=== PATIENT | female | born 1940 | race Caucasian/White ===

== ENCOUNTER 2021-05-06 06:34 | Day surgery (SDC) | payer MEDICARE, OTHER ==
[2021-05-04 15:54] VITALS: BMI 24.2
[~2021-05-06 06:34] MED LIST: LACTATED RINGERS 1,000 ML IV SCH
[2021-05-06] MEDS ORDERED: LIDOCAINE 1% (10MG/ML) FOR IV START INTRADERMA ONE (07:25)
[2021-05-06 07:32] VITALS: RESP 16; TEMP 97.3
[2021-05-06 07:33] LABS: Glucose,Whole Blood 125 mg/dL (75-99)
[2021-05-06] MEDS ORDERED: LIDOCAINE 1% INJ 10MG/ML (20 ML MDV) ONE (07:34)
[2021-05-06] MEDS ORDERED: PROPOFOL 10 MG/ML 20 ML VIAL IV ONE (07:34)
[2021-05-06 07:49] VITALS: BP 107/60; PULSE 71
--- NOTE | 2021-05-06 07:56 | P.PCN ---
Date of Procedure: 05/06/21 Procedure(s) Performed: BRIEF HISTORY: Patient is a 81-year-old, pleasant, white female scheduled for an upper endoscopy as a part of evaluation of iron deficiency anemia. 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 PROCEDURE PERFORMED: Esophagogastroduodenoscopywith biopsy PREOPERATIVE DIAGNOSIS: Iron deficiency anemia and positice anri intrinsic cell ab IV sedation per anesthesia. PROCEDURE: After informed consent was obtained, the patient was brought into the endoscopy unit. IV sedation was administered by Anesthesia under continuous monitoring. Initially the Olympus GIF-140 video endoscope was inserted into the mouth. Esophagus intubated without any difficulty. It was gradually advanced into the stomach and duodenum and carefully examined. The bulb and the second part of the duodenum appeared normal.biopsies were done from the duodenum to rule out celiac disease. The scope at this time was withdrawn to the stomach, adequately insufflated with air, and upon careful examination, mucosa of the antrum,had mild gastritis and biopsies were done from this area. The body, cardia and the fundus appeared normal. The scope was then withdrawn into the esophagus. The GE junction was located at 39 cm from the incisors.small hiatal hernia noted. The esophagus appeared normal. There were 2 superficial erosions consistent with LA grade a reflux esophagitis. Rest of esophagus appeared normal and the patient tolerated the procedure well. IMPRESSION: 1.mild antral gastritis. 2.small hiatal hernia. 3. LA grade B reflux esophagitis RECOMMENDATIONS: The findings of this examination were discussed with the jorge luis fish as well as her family. She was advised to follow with the biopsy results. She will continue with iron supplements.. Follow with Dr. Templeton scheduled
== END 2021-05-06 08:39 | disposition home or self-care (01) ==
LOC: ORWHC2ENDO 06:34
PROVIDERS: ATTEND Internal Medicine Gastroenterology
DX: D50.9 Iron deficiency anemia, unspecified (principal)
CPT/HCPCS: 43239; J2001; J2704; 88305; 88313; 88342

== ENCOUNTER 2023-03-10 12:11 | Inpatient (IN) | payer MEDICARE, OTHER ==
[2023-03-10] MEDS ORDERED: SODIUM CHLORIDE 0.9% 1,000 ML IV STA (12:59)
--- NOTE | 2023-03-10 13:11 | ED ---
General Adult HPI - General Chief complaint: Syncope Stated complaint: LOWER INJURY Time Seen by Provider: 03/10/23 12:11 Source: patient, family, EMS, RN notes reviewed Mode of arrival: EMS Limitations: no limitations - History of Present Illness Initial comments: 83-year-old female with a recently diagnosed atrial fibrillation who currently is on Xarelto and has been also having rectal bleeding she states who was shopping in a local grocery store when she started feeling lightheaded and needed to sit down she's had a small stool index evening she knew she was on the ground apparently help by bystanders. She denies any trauma she states she felt some chest heaviness before this occurred no palpitations no overt shortness of breath no cough no focal weakness. She states she has similar episode about 3 years ago a similar setting. She does state also she was seen at [facility] approximately 3 weeks ago when she was diagnosed with A. fib. She is on metoprolol.. Per family member she does look pale with better than she did a t the store she apparently looked blue in color per family. She does have a chronic history of anemia. Currently no shortness breath no chest pain no palpitations - Related Data Home Medications Medication Instructions Recorded Confirmed Cyanocobalamin (Vitamin B-12) 5,000 mcg PO DAILY 05/04/21 03/10/23 [Vitamin B12] Losartan [Cozaar] 50 mg PO DAILY 05/04/21 03/10/23 Lutein 20 mg PO DAILY 05/04/21 03/10/23 Spironolactone [Aldactone] 25 mg PO HS 05/04/21 03/10/23 metFORMIN HCL [Glucophage] 1,000 mg PO BID 05/04/21 03/10/23 Calcium Carb/Mag Ox/Zinc Sulf 1 tab PO DAILY 03/10/23 03/10/23 [Flz-Icc-Xxid 334-134-5 mg Tab] Metoprolol Succinate (ER) [Toprol 25 mg PO HS 03/10/23 03/10/23 Xl] Rivaroxaban [Xarelto] 20 mg PO DIRECTED 03/10/23 03/10/23 Vitamin B Complex 1 cap PO DAILY 03/10/23 03/10/23 Allergies Allergy/AdvReac Type Severity Reaction Status Date / Time LAYO Inhibitors Allergy Cough, Verified 03/10/23 16:21 THROAT IRRITATION aspirin Allergy Swelling Verified 03/10/23 16:21 OF EYES AND ITCHING ciprofloxacin [From Cipro] Allergy Nausea & Verified 03/10/23 16:21 Vomiting doxycycline Allergy Swelling Verified 03/10/23 16:21 AND RASH ALL OVER egg Allergy Diarrhea/ABDOMINAL Verified 03/10/23 16:21 PAIN nickel Allergy Swelling Verified 03/10/23 16:21 AT SITE OF JEWELRY Penicillins Allergy Rash/Hives Verified 03/10/23 16:21 Sulfa (Sulfonamide Allergy Rash/Hives Verified 03/10/23 16:21 Antibiotics) vitamin E (d-alpha Allergy BREAST PAIN Verified 03/10/23 16:21 tocopherol) GOLD Allergy Swelling Uncoded 03/10/23 16:21 AT SITE OF JEWELRY Review of Systems ROS Statement: Those systems with pertinent positive or pertinent negative responses have been documented in the HPI. ROS Other: All systems not noted in ROS Statement are negative. Past Medical History Past Medical History: Diabetes Mellitus, Hypertension, Osteoarthritis (OA), Thyroid Disorder Additional Past Medical History / Comment(s): ANEMIA, MIGRAINE HEADACHES , CHRONIC UTI , LACTOSE INTOLERANT, History of Any Multi-Drug Resistant Organisms: None Reported Past Surgical History: Appendectomy, Hysterectomy Additional Past Surgical History / Comment(s): RETINA SURGERY , TJ CATARACT EYE SURGERY, Past Anesthesia/Blood Transfusion Reactions: No Reported Reaction Past Psychological History: Anxiety Smoking Status: Never smoker - Past Family History Mother Family Medical History: Cancer Daughter(s) Family Medical History: Cancer Additional Family Medical History / Comment(s): BREAST CANCER General Exam - General Exam Comments Initial Comments: This a well up well-nourished awake alert oriented 6 female Limitations: no limitations General appearance: alert, in no apparent distress Head exam: Present: atraumatic, normocephalic, normal inspection Eye exam: Present: PERRL, EOMI, other (Pale conjunctiva) ENT exam: Present: normal exam, mucous membranes moist Neck exam: Present: normal inspection, full ROM, other (No stridor JVD or bruits). Absent: tenderness, meningismus, lymphadenopathy Respiratory exam: Present: normal lung sounds bilaterally. Absent: respiratory distress, wheezes, rales, rhonchi, stridor Cardiovascular Exam: Present: regular rate, normal rhythm, normal heart sounds. Absent: systolic murmur, diastolic murmur, rubs, gallop, clicks GI/Abdominal exam: Present: soft, normal bowel sounds. Absent: distended, tenderness, guarding, rebound, rigid, bruit, pulsatile mass Rectal exam: Present: normal inspection (Stool is brown with evidence of some tinge of blood my fingertip no masses no tenderness no evidence of external hemorrhoids no tenderness to the rectal canal on examination.) Extremities exam: Present: normal inspection, full ROM, normal capillary refill. Absent: tenderness, pedal edema, joint swelling, calf tenderness Back exam: Present: normal inspection Neurological exam: Present: alert, oriented X3, CN II-XII intact Psychiatric exam: Present: normal affect, normal mood Skin exam: Present: warm, dry, intact, normal color. Absent: rash Course Vital Signs 03/10/23 12:16 Temperature 97.8 F Pulse Rate 65 Respiratory 18 Rate Blood Pressure 151/70 O2 Sat by Pulse 98 Oximetry - Reevaluation(s) Reevaluation #1: 03/10/23 13:35 Additional history the patient does have a history of prolapse of the bladder and does use a pessary at times. Additionally she did show any photos of the blood in the toilet although she experiences she states daily some enterostomal nurse red blood and clots noted in the photos EKG Findings - EKG Results: EKG: sinus rhythm (EKG interpreted by me sinus rhythm with occasional supraventricular premature complexes rate 71 appear interval 172 QRS duration 13 QT since QTC 382/414 left exodeviation low-voltage minimal ST configuration change is consistent with a rhythm strip sent from [facility]) Medical Decision Making - Medical Decision Making I did discuss findings with the patient and her daughter as well as with Nick hayes for Dr. browne around him. Patient be admitted. I also did discuss case Dr. Oliva who is agreed to be consulted because of the GI bleeding.Was pt. sent in by a medical professional or institution (, PA, SKIN INSTALLER, urgent care, hospital, or custodial...) When possible be specific @ -No Did you speak to anyone other than the patient for history (EMS, parent, family, police, friend...)? What history was obtained from this source @ -Patient's daughter Did you review nursing and triage notes (agree or disagree)? Why? @ -I reviewed and agree with nursing and triage notes Were old charts reviewed (outside hosp., previous admission, EMS record, old EKG, old radiological studies, urgent care reports/EKG's, custodial records)? Report findings @ -[facility] records from 02/05/23 old charts were reviewed Differential Diagnosis (chest pain, altered mental status, abdominal pain women, abdominal pain men, vaginal bleeding, weakness, fever, dyspnea, syncope, headache, dizziness, GI bleed, back pain, seizure, CVA, palpatations, mental health, musculoskeletal)? @ -Sincope, chest pain, GI bleeding EKG interpreted by me (3pts min.). @ -As above EKG interpreted by me sinus rhythm with occasional supraventricular premature complexes ventricular rate 71 appear interval was 72 QRS duration 103 daily since QTC 392/[address] change consistent with that at the other hospital. X-rays interpreted by me (1pt min.). @ -Chest x-ray. My me no acute processes seen at this time CT interpreted by me (1pt min.). @ -None done U/S interpreted by me (1pt. min.). @ -None done What testing was considered but not performed or refused? (CT, X-rays, U/S, labs)? Why? @ -None What meds were considered but not given or refused? Why? @ -None Did you discuss the management of the patient with other professionals (professionals i.e. , PA, SKIN INSTALLER, lab, RT, psych nurse, criminal justice social worker, title i teacher, teacher, hydrographical technical officer, telephonic case manager)? Give summary @ -Nick covering for Dr. Rivero as well as Dr. Oliva Was smoking cessation discussed for >3mins.? @ -No Was critical care preformed (if so, how long)? @ -31 minutes Were there social determinants of health that impacted care today? How? (Homelessness, low income, unemployed, alcoholism, drug addiction, transportation, low edu. Level, literacy, decrease access to med. care, usp, rehab)? @ -No Was there de-escalation of care discussed even if they declined (Discuss DNR or withdrawal of care, Hospice)? DNR status @ -No What co-morbidities impacted this encounter? (DM, HTN, Smoking, COPD, CAD, Cancer, CVA, ARF, Chemo, Hep., AIDS, mental health diagnosis, sleep apnea, morbid obesity)? @ -History of A. fib, blood thinners, prior history of syncope Was patient admitted / discharged? Hospital course, mention meds given and route, prescriptions, significant lab abnormalities, going to OR and other pertinent info. @ -hospital course was admitted to the hospital for further evaluation and treatment Undiagnosed new problem with uncertain prognosis? @ -Syncope Drug Therapy requiring intensive monitoring for toxicity (Heparin, Nitro, Insulin, Cardizem)? @ -No Were any procedures done? @ -No Diagnosis/symptom? @ -Syncope, chest pain, GI bleeding, history of A. fib Acute, or Chronic, or Acute on Chronic? @ -Acute Uncomplicated (without systemic symptoms) or Complicated (systemic symptoms)? @ -Op located Side effects of treatment? @ -No Exacerbation, Progression, or Severe Exacerbation? @ -No Poses a threat to life or bodily function? How? (Chest pain, USA, IA, pneumonia, PE, COPD, DKA, ARF, appy, cholecystitis, CVA, Diverticulitis, Homicidal, Suicidal, threat to staff... and all critical care pts) @ -Syncope, GI bleeding - Lab Data Result diagrams: 03/10/23 13:47 03/10/23 13:47 Lab Results 03/10/23 03/10/23 03/10/23 Range/Units 13:47 13:47 13:47 WBC 9.8 (3.8-10.6) k/uL RBC 3.56 L (3.80-5.40) m/uL Hgb 9.5 L (11.4-16.0) gm/dL Hct 29.3 L (34.0-46.0) % MCV 82.4 (80.0-100.0) fL MCH 26.6 (25.0-35.0) pg MCHC 32.3 (31.0-37.0) g/dL RDW 14.3 (11.5-15.5) % Plt Count 115 L (150-450) k/uL MPV 11.5 Neutrophils % 85 % Lymphocytes % 10 % Monocytes % 4 % Eosinophils % 0 % Basophils % 0 % Neutrophils # 8.4 H (1.3-7.7) k/uL Lymphocytes # 1.0 (1.0-4.8) k/uL Monocytes # 0.4 (0-1.0) k/uL Eosinophils # 0.0 (0-0.7) k/uL Basophils # 0.0 (0-0.2) k/uL Manual Slide Review Performed Large Platelets Present Hypochromasia Slight PT 10.8 (10.0-12.5) sec INR 1.0 (<1.2) APTT 21.8 L (22.0-30.0) sec Sodium 137 (137-145) mmol/L Potassium 4.8 (3.5-5.1) mmol/L Chloride 107 (98-107) mmol/L Carbon Dioxide 19 L (22-30) mmol/L Anion Gap 11 mmol/L BUN 23 H (7-17) mg/dL Creatinine 0.81 (0.52-1.04) mg/dL Est GFR (CKD-EPI)AfAm 79 (>60 ml/min/1.73 sqM) Est GFR (CKD-EPI)NonAf 69 (>60 ml/min/1.73 sqM) Glucose 135 H (74-99) mg/dL Calcium 8.7 (8.4-10.2) mg/dL Magnesium 1.6 (1.6-2.3) mg/dL Total Bilirubin 0.4 (0.2-1.3) mg/dL AST 19 (14-36) U/L ALT 12 (4-34) U/L Alkaline Phosphatase 55 (38-126) U/L Troponin I (0.000-0.034) ng/mL Total Protein 5.9 L (6.3-8.2) g/dL Albumin 3.7 (3.5-5.0) g/dL TSH <0.015 L (0.465-4.680) mIU/L Urine Color Urine Appearance (Clear) Urine pH (5.0-8.0) Ur Specific [place] (1.001-1.035) Urine Protein (Negative) Urine Glucose (UA) (Negative) Urine Ketones (Negative) Urine Blood (Negative) Urine Nitrite (Negative) Urine Bilirubin (Negative) Urine Urobilinogen (<2.0) mg/dL Ur Leukocyte Esterase (Negative) Urine RBC (0-5) /hpf Urine WBC (0-5) /hpf Urine WBC Clumps (None) /hpf Ur Squamous Epith Cells (0-4) /hpf Urine Bacteria (None) /hpf Stool Occult Blood (Negative) Blood Type Blood Type Confirm Blood Type Recheck Bld Type Recheck Status Antibody Screen Spec Expiration Date 03/10/23 03/10/23 03/10/23 Range/Units 13:47 13:47 13:47 WBC (3.8-10.6) k/uL RBC (3.80-5.40) m/uL Hgb (11.4-16.0) gm/dL Hct (34.0-46.0) % MCV (80.0-100.0) fL MCH (25.0-35.0) pg MCHC (31.0-37.0) g/dL RDW (11.5-15.5) % Plt Count (150-450) k/uL MPV Neutrophils % % Lymphocytes % % Monocytes % % Eosinophils % % Basophils % % Neutrophils # (1.3-7.7) k/uL Lymphocytes # (1.0-4.8) k/uL Monocytes # (0-1.0) k/uL Eosinophils # (0-0.7) k/uL Basophils # (0-0.2) k/uL Manual Slide Review Large Platelets Hypochromasia PT (10.0-12.5) sec INR (<1.2) APTT (22.0-30.0) sec Sodium (137-145) mmol/L Potassium (3.5-5.1) mmol/L Chloride (98-107) mmol/L Carbon Dioxide (22-30) mmol/L Anion Gap mmol/L BUN (7-17) mg/dL Creatinine (0.52-1.04) mg/dL Est GFR (CKD-EPI)AfAm (>60 ml/min/1.73 sqM) Est GFR (CKD-EPI)NonAf (>60 ml/min/1.73 sqM) Glucose (74-99) mg/dL Calcium (8.4-10.2) mg/dL Magnesium (1.6-2.3) mg/dL Total Bilirubin (0.2-1.3) mg/dL AST (14-36) U/L ALT (4-34) U/L Alkaline Phosphatase (38-126) U/L Troponin I <0.012 (0.000-0.034) ng/mL Total Protein (6.3-8.2) g/dL Albumin (3.5-5.0) g/dL TSH (0.465-4.680) mIU/L Urine Color Urine Appearance (Clear) Urine pH (5.0-8.0) Ur Specific [place] (1.001-1.035) Urine Protein (Negative) Urine Glucose (UA) (Negative) Urine Ketones (Negative) Urine Blood (Negative) Urine Nitrite (Negative) Urine Bilirubin (Negative) Urine Urobilinogen (<2.0) mg/dL Ur Leukocyte Esterase (Negative) Urine RBC (0-5) /hpf Urine WBC (0-5) /hpf Urine WBC Clumps (None) /hpf Ur Squamous Epith Cells (0-4) /hpf Urine Bacteria (None) /hpf Stool Occult Blood Positive H (Negative) Blood Type A Positive Blood Type Confirm Blood Type Recheck No Previous Record Bld Type Recheck Status CABO Indicated Antibody Screen NEGATIVE Spec Expiration Date 03/13/2023 - 234603/10/23 03/10/23 Range/Units 13:47 14:15 WBC (3.8-10.6) k/uL RBC (3.80-5.40) m/uL Hgb (11.4-16.0) gm/dL Hct (34.0-46.0) % MCV (80.0-100.0) fL MCH (25.0-35.0) pg MCHC (31.0-37.0) g/dL RDW (11.5-15.5) % Plt Count (150-450) k/uL MPV Neutrophils % % Lymphocytes % % Monocytes % % Eosinophils % % Basophils % % Neutrophils # (1.3-7.7) k/uL Lymphocytes # (1.0-4.8) k/uL Monocytes # (0-1.0) k/uL Eosinophils # (0-0.7) k/uL Basophils # (0-0.2) k/uL Manual Slide Review Large Platelets Hypochromasia PT (10.0-12.5) sec INR (<1.2) APTT (22.0-30.0) sec Sodium (137-145) mmol/L Potassium (3.5-5.1) mmol/L Chloride (98-107) mmol/L Carbon Dioxide (22-30) mmol/L Anion Gap mmol/L BUN (7-17) mg/dL Creatinine (0.52-1.04) mg/dL Est GFR (CKD-EPI)AfAm (>60 ml/min/1.73 sqM) Est GFR (CKD-EPI)NonAf (>60 ml/min/1.73 sqM) Glucose (74-99) mg/dL Calcium (8.4-10.2) mg/dL Magnesium (1.6-2.3) mg/dL Total Bilirubin (0.2-1.3) mg/dL AST (14-36) U/L ALT (4-34) U/L Alkaline Phosphatase (38-126) U/L Troponin I (0.000-0.034) ng/mL Total Protein (6.3-8.2) g/dL Albumin (3.5-5.0) g/dL TSH (0.465-4.680) mIU/L Urine Color Light Yellow Urine Appearance Cloudy H (Clear) Urine pH 6.5 (5.0-8.0) Ur Specific [place] 1.015 (1.001-1.035) Urine Protein Trace H (Negative) Urine Glucose (UA) Negative (Negative) Urine Ketones Negative (Negative) Urine Blood Trace H (Negative) Urine Nitrite Negative (Negative) Urine Bilirubin Negative (Negative) Urine Urobilinogen <2.0 (<2.0) mg/dL Ur Leukocyte Esterase Large H (Negative) Urine RBC 4 (0-5) /hpf Urine WBC >182 H (0-5) /hpf Urine WBC Clumps Many H (None) /hpf Ur Squamous Epith Cells 18 H (0-4) /hpf Urine Bacteria Moderate H (None) /hpf Stool Occult Blood (Negative) Blood Type Blood Type Confirm A Positive Blood Type Recheck Bld Type Recheck Status Antibody Screen Spec Expiration Date - Radiology Data Interpreted by me: Imaging interpreted by me note definitive evidence of acute processes Critical Care Time Critical Care Time: Yes Total Critical Care Time: 31 Disposition Clinical Impression: Syncope and collapse, GI bleed, History of atrial fibrillation Disposition: ADMITTED IP TO THIS [facility] Condition: Stable Referrals: Tulio Palumbo MD [Primary Care Provider] - 1-2 days Decision Date: 03/10/23 Decision Time: 16:49
[2023-03-10 14:43] LABS: Appearance,Urine Cloudy (Clear); Bacteria,Urine Moderate /hpf; Bilirubin,Urine Negative (Negative); Blood,Urine Trace (Negative); Color,Urine Light Yellow; Glucose,Urine (UA) Negative (Negative); Ketones,Urine Negative (Negative); Leukocyte Esterase,Urine Large (Negative); Nitrite,Urine Negative (Negative); PH, Urine 6.5 (5.0-8.0); Protein,Urine Trace (Negative); RBC,Urine 4 /hpf (0-5); Specific Gravity,Urine 1.015 (1.001-1.035); Squamous Epithelial Cell,Urine 18 /hpf (0-4); Urobilinogen,Urine <2.0 mg/dL (<2.0); WBC,Urine >182 /hpf (0-5)
[2023-03-10 14:46] LABS: Basophils % (A) 0 %; Eosinophils % (A) 0 %; HCT 29.3 % (34.0-46.0); HGB 9.5 gm/dL (11.4-16.0); Hypochromasia Slight; Lymphocytes % (A) 10 %; MCH 26.6 pg (25.0-35.0); MCHC 32.3 g/dL (31.0-37.0); MCV 82.4 fL (80.0-100.0); Mean Platelet Volume 11.5; Monocytes # (A) 0.4 k/uL (0-1.0); Monocytes % (A) 4 %; Neutrophils # (A) 8.4 k/uL (1.3-7.7); Neutrophils % (A) 85 %; Platelet Count 115 k/uL (150-450); RBC 3.56 m/uL (3.80-5.40); RDW 14.3 % (11.5-15.5); WBC 9.8 k/uL (3.8-10.6)
[2023-03-10 14:56] LABS: Prothrombin Time 10.8 sec (10.0-12.5)
[2023-03-10 15:12] LABS: Partial Thromboplastin Time 21.8 sec (22.0-30.0)
[2023-03-10 15:17] LABS: ALT 12 U/L (4-34); AST 19 U/L (14-36); African American GFR (CKD) 79 (>60 ml/min/1.73 sqM); Albumin 3.7 g/dL (3.5-5.0); Alkaline Phosphatase 55 U/L (38-126); Anion Gap 11 mmol/L; Blood Urea Nitrogen 23 mg/dL (7-17); Calcium 8.7 mg/dL (8.4-10.2); Carbon Dioxide 19 mmol/L (22-30); Chloride 107 mmol/L (98-107); Glucose 135 mg/dL (74-99); Magnesium 1.6 mg/dL (1.6-2.3); Non-African American GFR(CKD) 69 (>60 ml/min/1.73 sqM); Potassium 4.8 mmol/L (3.5-5.1); Sodium 137 mmol/L (137-145); Total Bilirubin 0.4 mg/dL (0.2-1.3); Total Protein 5.9 g/dL (6.3-8.2)
--- NOTE | 2023-03-10 15:37 | XR ---
EXAMINATION TYPE: XR chest 2V DATE OF EXAM: 03/10/2023 3:32 PM CLINICAL INDICATION:Female, 83 years old with history of syncope. COMPARISON: None. TECHNIQUE: XR chest 2V Frontal and lateral views of the chest. FINDINGS: Lungs/Pleura: Chronic likely emphysematous changes are noted of the lungs. Hazy airspace opacity with in the medial right lung as well as associated scarring is identified. No evidence of pleural effusio n or pneumothorax. Pulmonary vascularity: Unremarkable. Heart/mediastinum: Cardiomediastinal silhouette is unremarkable. Musculoskeletal: No acute osseous pathology. IMPRESSION: Chronic emphysematous changes with likely developing right mid/lower lung airspace disease.
--- NOTE | 2023-03-10 15:38 | XR ---
EXAMINATION TYPE: XR KUB DATE OF EXAM: 03/10/2023 3:32 PM CLINICAL INDICATION:Female, 83 years old with history of GI bleeding. COMPARISON: None. TECHNIQUE: One radiographic view of the abdomen was obtained. FINDINGS: The bowel gas pattern is nonspecific without dilated loops of small or large bowel. There i s no evidence for organomegaly or pneumoperitoneum. The osseous structures are intact. Fecal materi al and gas are demonstrated throughout the colon and rectum. IMPRESSION: Nonspecific bowel gas pattern without radiographic evidence for acute process.
[2023-03-10 16:20] LABS: Large Platelets Present
[2023-03-10] MEDS ORDERED: ONDANSETRON 4 MG/2 ML VIAL IVP PRN (16:49)
[2023-03-10] MEDS ORDERED: NALOXONE 0.4 MG/ML 1 ML VIAL IV PRN (16:49)
--- NOTE | 2023-03-10 17:08 | P.HPIM ---
History of Present Illness H&P Date: 03/10/23 History of Presenting Illness: Patient is a very pleasant 83-year-old female with a past medical history of paroxysmal atrial fibrillation, hypertension, hyperlipidemia, hypothyroidism, type II blu-[id number]-rkpamicbu diabetes mellitus, and chronic iron deficiency anemia. Patient reports she was recently diagnosed with atrial fibrillation after presenting to [facility] on 02/28/23 with palpitations and found to be in atrial fibrillation with RVR. Patient states at that time she was discharged home on Xarelto and shortly after began noticing bright red blood per her rectum. 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 Patient reports she continued to have daily episodes of bright red blood per rectum. She denies having any chest pain, shortness of breath, abdominal pain or discomfort, changes in or difficulties with her urination, hematuria, nausea, vomiting, hematemesis, melena, or experiencing any numbness/tingling/weakness/swelling in her extremities. Patient reports today while shopping at [employer] and going to roll picker some prescriptions she suddenly began to feel extremely anxious with a heaviness across her chest followed by lightheadedness and the need to sit down as she felt she was going to pass out. Patient reports she sat down on a stool next to the isle and two women came right over to help her. Patient reports the next thing she knew she was lying on the floor with her head on a dog bed. Family member at bedside states that bystanders were cardiac care nurses and that the patient did not fall or hit her head but was gently lowered to the grou nd for her own safety after she lost consciousness. Pt currently denies having any complaints other than feeling a little tired, anxious and wore out. Pt states long hx of anemia but does not know baseline Hgb level. Patient underwent full evaluation in the emergency department. Labs completed and reviewed. CBC showing normocytic anemia with hemoglobin of 9.5 and thrombocytopenia with platelet count of 115. Coagulation profile showing low PTT at 21.8 otherwise normal findings. BMP showing prerenal azotemia with BUN of 23. Liver profile unremarkable. Troponin negative at less than 0.012. TSH less than 0.015 with free T4 pending. Urinalysis was contaminated and patient denies having urinary complaints at this time. Occult stool positive for blood. EKG was completed showing normal sinus rhythm with frequent PACs at 71 bpm with T-wave inversion in inferior leads 2, 3, and aVF no ST abnormalities showing no signs of acute ischemia. Chest x-ray revealing chronic emphysematous changes with hazy airspace opacity within the right medial lung. KUB showing nonspecific bowel gas pattern negative for acute process. Discussed patient's history, chief complaint, clinical findings, laboratory analysis, and imaging results in detail with the ED physician. ED physician reports that general surgeon, Dr. العلي accepted consult for evaluation and management of patient's GI bleed as cork wirer is not available at this time. Patient to be admitted to stepdown unit with telemetry under our services. Gen. surgery and cardiology were consulted. Review of systems: Pertinent positives and negatives as discussed in HPI, a complete review of systems was performed and all other systems are negative. Physical exam: Vital signs reviewed and stable. General: Nontoxic, no distress and appears stated age. Derm: Skin warm and dry, normal coloration for ethnicity. Head: Atraumatic, normocephalic and symmetric. Eyes: EOMs intact, no lid lag, and anicteric sclera Mouth: no lip lesions, mucus membranes moist Cardiovascular: regular rate and rhythm with normal S1S2, systolic murmur, positive posterior tibial pulses bilaterally, and cap refill < 2 seconds. Lungs: Respirations even, regular, and unlabored on room air. Lungs CTA bilaterally, no rhonchi, no rales, no wheezing, and no accessory muscle usage. Abdominal: soft, nontender to palpation, no guarding, no appreciable or ganomegaly Ext: ROM intact. No gross muscle atrophy, no edema, no contractures Neuro: Speech clear, face symmetrical and CN II-XII grossly intact with no noted focal neuro deficits Psych: Alert and oriented to person, place, time, and situation. Appropriate and pleasant affect. Assessment and Plan of Care: Syncopal episode, Possibly secondary to symptomatic anemia vs arrhythmia as patient reported feeling very anxious with a heaviness across her chest just prior to event Lower GI bleed with reports of bright red blood per rectum Acute blood loss anemia on anemia of chronic disease Paroxysmal atrial fibrillation Hypertension Hyperlipidemia Hypothyroidism Owf-[id number] diabetes mellitus -Order placed for d-dimer to rule out PE -Echocardiogram to be completed -Gen. surgeon consulted for management of GI bleed -Cardiology consulted secondary to syncopal episode with recently diagnosed A. fib RVR and patient reporting just prior to syncopal event feeling very anxious with a heaviness across her chest -Monitor H&H every 6 hours x 4 and transfuse as needed for hemoglobin less than 7. -Protonix 40 mg IVP twice daily. -Clear liquid diet until cleared by Gen Sx to advance diet. -Continued gentle hydration with 0.9% normal saline at 75 mL's per hour. -Hold anticoagulation with Xarelto and order placed for MARILOU hose and SCDs for DVT prophylaxis. -Vital signs to be monitored every 4 hours and as needed. Patient to continue with daily home medication regimen with losartan 50 mg daily and metoprolol 25 mg nightly. -Hold metformin and placed patient on glycemic protocol with NovoLog sliding scale. Data and imaging reviewed: -Labs completed and reviewed. CBC showing normocytic anemia with hemoglobin of 9.5 and thrombocytopenia with platelet count of 115. Coagulation profile showing low PTT at 21.8 otherwise normal findings. BMP showing prerenal azotemia with BUN of 23. Liver profile unremarkable. Troponin negative at less than 0.012. TSH less than 0.015 with free T4 pending. -Urinalysis was contaminated and patient denies having urinary complaints at this time. -Occult stool positive for blood. -EKG was completed showing normal sinus rhythm with frequent PACs at 71 bpm with T-wave inversion in inferior leads 2, 3, and aVF no ST abnormalities showing no signs of acute ischemia. -Chest x-ray revealing chronic emphysematous changes with hazy airspace opacity within the right medial lung. -KUB showing nonspecific bowel gas pattern negative for acute process. Discussed patient's history, chief complaint, clinical findings, laboratory analysis, and imaging results in detail with the ED physician. ED physician reports that general surgeon, Dr. العلي accepted consult for evaluation and management of patient's GI bleed as cork wirer is not available at this time. Patient to be admitted to stepdown unit with telemetry under our services with an anticipated greater than 2 midnight stay for evaluation of syncopal episode and lower GI bleed CODE STATUS: Full code DVT prophylaxis: anticoagulation held secondary to lower GI bleed, MARILOU hose and SCDs for DVT prophylaxis. Discussed with: Patient, patient's family members at bedside, and ED physician. Anticipated discharge date: clinical course to determine Anticipated discharge place: home Patient was seen independently by Nurse Practitioner. This document was prepared using [employer] dictation software. Please allow for errors in repair tech while rare they do occur. Past Medical History Past Medical History: Diabetes Mellitus, Hypertension, Osteoarthritis (OA), Thyroid Disorder Additional Past Medical History / Comment(s): ANEMIA, MIGRAINE HEADACHES , C HRONIC UTI , LACTOSE INTOLERANT, History of Any Multi-Drug Resistant Organisms: None Reported Past Surgical History: Appendectomy, Hysterectomy Additional Past Surgical History / Comment(s): RETINA SURGERY , TJ CATARACT EYE SURGERY, Past Anesthesia/Blood Transfusion Reactions: No Reported Reaction Past Psychological History: Anxiety Smoking Status: Never smoker - Past Family History Mother Family Medical History: Cancer Daughter(s) Family Medical History: Cancer Additional Family Medical History / Comment(s): BREAST CANCER Medications and Allergies Home Medications Medication Instructions Recorded Confirmed Type Cyanocobalamin (Vitamin B-12) 5,000 mcg PO DAILY 05/04/21 03/10/23 History [Vitamin B12] Losartan [Cozaar] 50 mg PO DAILY 05/04/21 03/10/23 History Lutein 20 mg PO DAILY 05/04/21 03/10/23 History Spironolactone [Aldactone] 25 mg PO HS 05/04/21 03/10/23 History metFORMIN HCL [Glucophage] 1,000 mg PO BID 05/04/21 03/10/23 History Calcium Carb/Mag Ox/Zinc Sulf 1 tab PO DAILY 03/10/23 03/10/23 History [[id number] 334-134-5 mg Tab] Metoprolol Succinate (ER) [Toprol 25 mg PO HS 03/10/23 03/10/23 History Xl] Rivaroxaban [Xarelto] 20 mg PO DIRECTED 03/10/23 03/10/23 History Vitamin B Complex 1 cap PO DAILY 03/10/23 03/10/23 History Allergies Allergy/AdvReac Type Severity Reaction Status Date / Time LAYO Inhibitors Allergy Cough, Verified 03/10/23 16:21 THROAT IRRITATION aspirin Allergy Swelling Verified 03/10/23 16:21 OF EYES AND ITCHING ciprofloxacin [From Cipro] Allergy Nausea & Verified 03/10/23 16:21 Vomiting doxycycline Allergy Swelling Verified 03/10/23 16:21 AND RASH ALL OVER egg Allergy Diarrhea/ABDOMINAL Verified 03/10/23 16:21 PAIN nickel Allergy Swelling Verified 03/10/23 16:21 AT SITE OF JEWELRY Penicillins Allergy Rash/Hives Verified 03/10/23 16:21 Sulfa (Sulfonamide Allergy Rash/Hives Verified 03/10/23 16:21 Antibiotics) vitamin E (d-alpha Allergy BREAST PAIN Verified 03/10/23 16:21 tocopherol) GOLD Allergy Swelling Uncoded 03/10/23 16:21 AT SITE OF JEWELRY Physical Exam Vitals: Vital Signs Temp Pulse Resp BP Pulse Ox 03/10/23 16:48 71 19 157/73 98 03/10/23 12:16 97.8 F 65 18 151/70 98 Intake and Output 03/10/23 03/10/23 03/10/23 06:59 14:59 22:59 Other: Weight 72.575 kg Results CBC & Chem 7: 03/10/23 13:47 03/10/23 13:47 Labs: Abnormal Lab Results - Last 24 Hours (Table) 03/10/23 03/10/23 03/10/23 Range/Units 13:47 13:47 13:47 RBC 3.56 L (3.80-5.40) m/uL Hgb 9.5 L (11.4-16.0) gm/dL Hct 29.3 L (34.0-46.0) % Plt Count 115 L (150-450) k/uL Neutrophils # 8.4 H (1.3-7.7) k/uL APTT 21.8 L (22.0-30.0) sec Carbon Dioxide 19 L (22-30) mmol/L BUN 23 H (7-17) mg/dL Glucose 135 H (74-99) mg/dL Total Protein 5.9 L (6.3-8.2) g/dL TSH <0.015 L (0.465-4.680) mIU/L Urine Appearance (Clear) Urine Protein (Negative) Urine Blood (Negative) Ur Leukocyte Esterase (Negative) Urine WBC (0-5) /hpf Urine WBC Clumps (None) /hpf Ur Squamous Epith Cells (0-4) /hpf Urine Bacteria (None) /hpf Stool Occult Blood (Negative) 03/10/23 03/10/23 Range/Units 13:47 13:47 RBC (3.80-5.40) m/uL Hgb (11.4-16.0) gm/dL Hct (34.0-46.0) % Plt Count (150-450) k/uL Neutrophils # (1.3-7.7) k/uL APTT (22.0-30.0) sec Carbon Dioxide (22-30) mmol/L BUN (7-17) mg/dL Glucose (74-99) mg/dL Total Protein (6.3-8.2) g/dL TSH (0.465-4.680) mIU/L Urine Appearance Cloudy H (Clear) Urine Protein Trace H (Negative) Urine Blood Trace H (Negative) Ur Leukocyte Esterase Large H (Negative) Urine WBC >182 H (0-5) /hpf Urine WBC Clumps Many H (None) /hpf Ur Squamous Epith Cells 18 H (0-4) /hpf Urine Bacteria Moderate H (None) /hpf Stool Occult Blood Positive H (Negative)
[2023-03-10] MEDS ORDERED: DEXTROSE 50% SYRINGE 50 ML IVP PRN ×2 (17:47)
[2023-03-10] MEDS: MAGNESIUM SULFATE-D5W PMX 1 GM in DEXTROSE/WATER 1 100ML.BAG IVPB SCH ×2 (18:19→20:08)
[2023-03-10] MEDS: SODIUM CHLORIDE 0.9% 1,000 ML IV SCH (18:20)
[2023-03-10 18:35] LABS: T4, Free (Free Thyroxine) 1.87 ng/dL (0.78-2.19)
[2023-03-10 19:59] LABS: Basophils % (A) 0 %; Eosinophils # (A) 0.1 k/uL (0-0.7); Eosinophils % (A) 1 %; HCT 28.5 % (34.0-46.0); HGB 9.1 gm/dL (11.4-16.0); Hypochromasia Slight; Lymphocytes # (A) 1.5 k/uL (1.0-4.8); Lymphocytes % (A) 19 %; MCH 26.3 pg (25.0-35.0); Mean Platelet Volume 10.5; Monocytes # (A) 0.4 k/uL (0-1.0); Monocytes % (A) 5 %; Neutrophils # (A) 5.7 k/uL (1.3-7.7); Neutrophils % (A) 75 %; Platelet Count 105 k/uL (150-450); RBC 3.47 m/uL (3.80-5.40); RDW 14.2 % (11.5-15.5); WBC 7.7 k/uL (3.8-10.6)
[2023-03-10] MEDS ORDERED: SPIRONOLACTONE 25 MG TAB PO SCH (21:00)
[2023-03-10 21:01] LABS: Glucose,Whole Blood 120 mg/dL (70-110)
[2023-03-10] MEDS: INSULIN ASPART (NovoLOG) 100 UNIT/ML VIAL SQ SCH (21:38)
[2023-03-10] MEDS: PANTOPRAZOLE 40 MG/10 ML VIAL IV SCH (22:16)
[2023-03-10] MEDS: METOPROLOL SUCCINATE (ER) 25 MG TAB.ER.24H PO SCH (22:17)
[2023-03-11 03:43] VITALS: RESP 16
[2023-03-11 06:22] LABS: Glucose,Whole Blood 142 mg/dL (70-110)
[2023-03-11] MEDS: INSULIN ASPART (NovoLOG) 100 UNIT/ML VIAL SQ SCH ×4 (06:59→21:48)
[2023-03-11] MEDS: SODIUM CHLORIDE 0.9% 1,000 ML IV SCH ×2 (06:59→18:53)
[2023-03-11 08:02] LABS: HGB 8.4 gm/dL (11.4-16.0); Hypochromasia Slight; MCH 25.7 pg (25.0-35.0); MCHC 31.1 g/dL (31.0-37.0); MCV 82.6 fL (80.0-100.0); Mean Platelet Volume 11.2; RBC 3.27 m/uL (3.80-5.40); RDW 14.2 % (11.5-15.5); WBC 6.3 k/uL (3.8-10.6)
[2023-03-11] MEDS: PANTOPRAZOLE 40 MG/10 ML VIAL IV SCH ×2 (08:12→19:55)
[2023-03-11] MEDS: LOSARTAN 50 MG TAB PO SCH (08:12)
[2023-03-11 08:17] LABS: ALT 12 U/L (4-34); AST 17 U/L (14-36); African American GFR (CKD) 80 (>60 ml/min/1.73 sqM); Albumin 3.2 g/dL (3.5-5.0); Alkaline Phosphatase 50 U/L (38-126); Anion Gap 9 mmol/L; Blood Urea Nitrogen 17 mg/dL (7-17); Calcium 8.6 mg/dL (8.4-10.2); Carbon Dioxide 20 mmol/L (22-30); Chloride 109 mmol/L (98-107); Glucose 126 mg/dL (74-99); Magnesium 1.8 mg/dL (1.6-2.3); Non-African American GFR(CKD) 70 (>60 ml/min/1.73 sqM); Potassium 4.3 mmol/L (3.5-5.1); Sodium 138 mmol/L (137-145); Total Bilirubin 0.5 mg/dL (0.2-1.3); Total Protein 5.5 g/dL (6.3-8.2)
[2023-03-11] MEDS ORDERED: PANTOPRAZOLE 40 MG/10 ML VIAL IV SCH (09:00)
[2023-03-11 09:41] LABS: Platelet Count 104 k/uL (150-450)
[2023-03-11 11:48] LABS: Glucose,Whole Blood 183 mg/dL (70-110)
[2023-03-11 12:53] LABS: HCT 28.2 % (34.0-46.0); HGB 8.9 gm/dL (11.4-16.0); Hypochromasia Slight; MCH 26.2 pg (25.0-35.0); MCHC 31.7 g/dL (31.0-37.0); MCV 82.6 fL (80.0-100.0); Mean Platelet Volume 10.1; Platelet Count 109 k/uL (150-450); RBC 3.42 m/uL (3.80-5.40); RDW 14.3 % (11.5-15.5); WBC 5.6 k/uL (3.8-10.6)
--- NOTE | 2023-03-11 13:28 | P.CRDCN ---
History of Present Illness Consult date: 03/11/23 History of present illness: HISTORY OF PRESENTING ILLNESS 83-year-old female with past medical history of paroxysmal atrial fibrillation on Xarelto, hypertension, dyslipidemia, HTN, Type II Diabetes. Patient presented to the hospital with the chief complaint of bright red blood per rectum after starting Xarelto. Recommend to the hospital, patient was shopping at [employer] when she started experiencing substernal chest pressure and lightheadedness. The symptoms went away when she rested. On admission she was noticed to be anemic with hemoglobin of 9, TSH was low at 0.015 and normal T4. She is on levothyroxine 100 g Her other labs were essentially within normal limits, troponin was not elevated. Her ECG shows sinus rhythm with nonspecific ST changes inferiorly. Currently in sinus rhythm REVIEW OF SYSTEMS 14 point review of system is negative except what is mentioned above in HPI. PHYSICAL EXAMINATION Vital signs reviewed. Head: Normocephalic. Eyes: Sclerae nonicteric. Neck: Brisk carotid upstroke, no jugular venous distention. Lungs: Clear to auscultation. Heart: Regular rate and rhythm, S1-S2, no S3, no murmur or rub. Abdomen: Soft nontender, positive bowel sounds no organomegaly. Extremities: No edema, intact distal pulses. Neuro: Alert, oritented, no focal deficits ASSESSMENT Symptomatic anemia. Acute on chronic Suspected lower GI bleeding Lightheadedness and chest pressure due to above Paroxysmal atrial fibrillation, currently in sinus Hypertension Type II Diabetes Hypothyroidism. TSH is significantly low. PLAN Agree with holding anticoagulation. Continue losartan 50 mg and metoprolol 25 mg daily Surgical consult for possible endoscopy and colonoscopy Echocardiogram. If his cardiac myopathy or wall motion, we will need ischemic evaluation considering her resting nonspecific ECG changes in inferior leads Recommend reducing the dose of levothyroxine. Primary team to evaluate Past Medical History Past Medical History: Diabetes Mellitus, Hypertension, Osteoarthritis (OA), Thyroid Disorder Additional Past Medical History / Comment(s): ANEMIA, MIGRAINE HEADACHES , CHRONIC UTI , LACTOSE INTOLERANT, History of Any Multi-Drug Resistant Organisms: None Reported Past Surgical History: Appendectomy, Hysterectomy Additional Past Surgical History / Comment(s): RETINA SURGERY , TJ CATARACT EYE SURGERY, Past Anesthesia/Blood Transfusion Reactions: No Reported Reaction Smoking Status: Never smoker - Past Family History Mother Family Medical History: Cancer Daughter(s) Family Medical History: Cancer Additional Family Medical History / Comment(s): BREAST CANCER Medications and Allergies Home Medications Medication Instructions Recorded Confirmed Type Cyanocobalamin (Vitamin B-12) 5,000 mcg PO DAILY 05/04/21 03/10/23 History [Vitamin B12] Losartan [Cozaar] 50 mg PO DAILY 05/04/21 03/10/23 History Lutein 20 mg PO DAILY 05/04/21 03/10/23 History Spironolactone [Aldactone] 25 mg PO HS 05/04/21 03/10/23 History metFORMIN HCL [Glucophage] 1,000 mg PO BID 05/04/21 03/10/23 History Calcium Carb/Mag Ox/Zinc Sulf 1 tab PO DAILY 03/10/23 03/10/23 History [Zhi-Jqg-Bhtz 334-134-5 mg Tab] Metoprolol Succinate (ER) [Toprol 25 mg PO HS 03/10/23 03/10/23 History Xl] Rivaroxaban [Xarelto] 20 mg PO DIRECTED 03/10/23 03/10/23 History Vitamin B Complex 1 cap PO DAILY 03/10/23 03/10/23 History Levothyroxine Sodium [Synthroid] 100 mcg PO DAILY 03/11/23 03/11/23 History Allergies Allergy/AdvReac Type Severity Reaction Status Date / Time LAYO Inhibitors Allergy Cough, Verified 03/10/23 16:21 THROAT IRRITATION aspirin Allergy Swelling Verified 03/10/23 16:21 OF EYES AND ITCHING ciprofloxacin [From Cipro] Allergy Nausea & Verified 03/10/23 16:21 Vomiting doxycycline Allergy Swelling Verified 03/10/23 16:21 AND RASH ALL OVER egg Allergy Diarrhea/ABDOMINAL Verified 03/10/23 16:21 PAIN nickel Allergy Swelling Verified 03/10/23 16:21 AT SITE OF JEWELRY Penicillins Allergy Rash/Hives Verified 03/10/23 16:21 Sulfa (Sulfonamide Allergy Rash/Hives Verified 03/10/23 16:21 Antibiotics) vitamin E (d-alpha Allergy BREAST PAIN Verified 03/10/23 16:21 tocopherol) GOLD Allergy Swelling Uncoded 03/10/23 16:21 AT SITE OF JEWELRY Physical Exam Vitals: Vital Signs Temp Pulse Pulse Resp BP BP Pulse Ox 03/11/23 12:45 97.7 F 61 16 138/76 96 03/11/23 07:50 98.2 F 57 L 16 134/69 96 03/11/23 03:38 98.1 F 72 16 147/79 98 03/11/23 00:00 97.9 F 70 18 150/73 96 03/10/23 22:41 98.1 F 74 18 152/74 96 03/10/23 19:53 98.3 F 72 16 156/89 97 03/10/23 16:48 71 19 157/73 98 Intake and Output 03/10/23 03/11/23 03/11/23 22:59 06:59 14:59 Intake Total 540 240 Balance 540 240 Intake: Oral 540 240 Other: Voiding Method Toilet Toilet # Voids 1 1 # Bowel Movements 1 1 Weight 72.575 kg Results 03/11/23 12:39 03/11/23 07:14 Cardiac Enzymes 03/10/23 03/10/23 03/11/23 Range/Units 13:47 13:47 07:14 AST 19 17 (14-36) U/L Troponin I <0.012 (0.000-0.034) ng/mL Coagulation 03/10/23 Range/Units 13:47 PT 10.8 (10.0-12.5) sec APTT 21.8 L (22.0-30.0) sec CBC 03/10/23 03/10/23 03/11/23 Range/Units 13:47 19:29 07:14 WBC 9.8 7.7 6.3 (3.8-10.6) k/uL RBC 3.56 L 3.47 L 3.27 L (3.80-5.40) m/uL Hgb 9.5 L 9.1 L 8.4 L (11.4-16.0) gm/dL Hct 29.3 L 28.5 L 27.0 L (34.0-46.0) % Plt Count 115 L 105 L 104 L (150-450) k/uL 03/11/23 Range/Units 12:39 WBC 5.6 (3.8-10.6) k/uL RBC 3.42 L (3.80-5.40) m/uL Hgb 8.9 L (11.4-16.0) gm/dL Hct 28.2 L (34.0-46.0) % Plt Count 109 L (150-450) k/uL Comprehensive Metabolic Panel 03/10/23 03/11/23 Range/Units 13:47 07:14 Sodium 137 138 (137-145) mmol/L Potassium 4.8 4.3 (3.5-5.1) mmol/L Chloride 107 109 H (98-107) mmol/L Carbon Dioxide 19 L 20 L (22-30) mmol/L BUN 23 H 17 (7-17) mg/dL Creatinine 0.81 0.80 (0.52-1.04) mg/dL Glucose 135 H 126 H (74-99) mg/dL Calcium 8.7 8.6 (8.4-10.2) mg/dL AST 19 17 (14-36) U/L ALT 12 12 (4-34) U/L Alkaline Phosphatase 55 50 (38-126) U/L Total Protein 5.9 L 5.5 L (6.3-8.2) g/dL Albumin 3.7 3.2 L (3.5-5.0) g/dL Current Medications Generic Name Dose Route Start Last Admin Trade Name Freq PRN Reason Stop Dose Admin Dextrose/Water 25 ml 03/10/23 17:47 Dextrose 50% Syringe 50 Ml IVP PER PROTOCOL PRN Hypoglycemia Protocol Dextrose/Water 50 ml 03/10/23 17:47 Dextrose 50% Syringe 50 Ml IVP PER PROTOCOL PRN Hypoglycemia Protocol Sodium Chloride 1,000 mls @ 75 mls/hr 03/10/23 17:00 03/11/23 06:59 Saline 0.9% IV Not Given .[id number] AGUSTO Insulin Aspart 0 unit 03/10/23 21:00 03/11/23 12:17 Insulin Aspart (Novolog) 100 Unit/Ml Vial SQ Not Given ACHS AGUSTO Protocol Losartan Potassium 50 mg 03/11/23 09:00 03/11/23 08:12 Losartan 50 Mg Tab PO 50 mg DAILY AGUSTO Administration Metoprolol Succinate 25 mg 03/10/23 21:00 03/10/23 22:17 Metoprolol Succinate (Er) 25 Mg Tab.Er.24h PO 25 mg HS AGUSTO Administration Naloxone HCl 0.2 mg 03/10/23 16:49 Naloxone 0.4 Mg/Ml 1 Ml Vial IV Q2M PRN Opioid Reversal Ondansetron HCl 4 mg 03/10/23 16:49 Ondansetron 4 Mg/2 Ml Vial IVP Q8HR PRN Nausea And Vomiting Pantoprazole Sodium 40 mg 03/10/23 21:00 03/11/23 08:12 Pantoprazole 40 Mg/10 Ml Vial IV 40 mg BID AGUSTO Administration Intake and Output 03/10/23 03/11/23 03/11/23 22:59 06:59 14:59 Intake Total 540 240 Balance 540 240 Intake: Oral 540 240 Other: Voiding Method Toilet Toilet # Voids 1 1 # Bowel Movements 1 1 Weight 72.575 kg 03/11/23 12:39 03/11/23 07:14
--- NOTE | 2023-03-11 13:40 | P.PN ---
Subjective Progress Note Date: 03/11/23 History of Presenting Illness: Patient is a very pleasant 83-year-old female with a past medical history of paroxysmal atrial fibrillation, hypertension, hyperlipidemia, hypothyroidism, type II urt-qujufre-orthdhdyx diabetes mellitus, and chronic iron deficiency anemia. Patient reports she was recently diagnosed with atrial fibrillation after presenting to [facility] on 02/28/23 with palpitations and found to be in atrial fibrillation with RVR. Patient states at that time she was discharged home on Xarelto and shortly after began noticing bright red blood per her rectum. Patient reports she called the cut off sawyer log's office and was instructed to continue the anticoagulation. Patient reports she continued to have daily episodes of bright red blood per rectum. She denies having any chest pain, shortness of breath, abdominal pain or discomfort, changes in or difficulties with her urination, hematuria, nausea, vomiting, hematemesis, gudelia na, or experiencing any numbness/tingling/weakness/swelling in her extremities. Patient reports today while shopping at [employer] and going to pick and shovel man some prescriptions she suddenly began to feel extremely anxious with a heaviness across her chest followed by lightheadedness and the need to sit down as she felt she was going to pass out. Patient reports she sat down on a stool next to the isle and two women came right over to help her. Patient reports the next thing she knew she was lying on the floor with her head on a dog bed. Family member at bedside states that bystanders were cardiac care nurses and that the patient did not fall or hit her head but was gently lowered to the ground for her own safety after she lost consciousness. Pt currently denies having any complaints other than feeling a little tired, anxious and wore out. Pt states long hx of anemia but does not know baseline Hgb level. Patient underwent full evaluation in the emergency department. Labs completed and reviewed. CBC showing normocytic anemia with hemoglobin of 9.5 and thrombocytopenia with platelet count of 115. Coagulation profile showing low PTT at 21.8 otherwise normal findings. BMP showing prerenal azotemia with BUN of 23. Liver profile unremarkable. Troponin negative at less than 0.012. TSH less than 0.015 with free T4 pending. Urinalysis was contaminated and patient denies having urinary complaints at this time. Occult stool positive for blood. EKG was completed showing normal sinus rhythm with frequent PACs at 71 bpm with T-wave inversion in inferior leads 2, 3, and aVF no ST abnormalities showing no signs of acute ischemia. Chest x-ray revealing chronic emphysematous changes with hazy airspace opacity within the right medial lung. KUB showing nonspecific bowel gas pattern negative for acute process. Discussed patient's history, chief complaint, clinical findings, laboratory analysis, and imaging results in detail with the ED physician. ED physician reports that general surgeon, Dr. العلي accepted consult for evaluation and management of patient's GI bleed as gas troenterologist is not available at this time. Patient to be admitted to stepdown unit with telemetry under our services. Gen. surgery and cardiology were consulted. Physical exam: Vital signs reviewed and stable. General: Nontoxic, no distress and appears stated age. Derm: Skin warm and dry, normal coloration for ethnicity. Head: Atraumatic, normocephalic and symmetric. Eyes: EOMs intact, no lid lag, and anicteric sclera Mouth: no lip lesions, mucus membranes moist Cardiovascular: regular rate and rhythm with normal S1S2, systolic murmur, po sitive posterior tibial pulses bilaterally, and cap refill < 2 seconds. Lungs: Respirations even, regular, and unlabored on room air. Lungs CTA bilaterally, no rhonchi, no rales, no wheezing, and no accessory muscle usage. Abdominal: soft, nontender to palpation, no guarding, no appreciable organ omegaly Ext: ROM intact. No gross muscle atrophy, no edema, no contractures Neuro: Speech clear, face symmetrical and CN II-XII grossly intact with no noted focal neuro deficits Psych: Alert and oriented to person, place, time, and situation. Appropriate and pleasant affect. Assessment and Plan of Care: Syncopal episode, Possibly secondary to symptomatic anemia vs arrhythmia as patient reported feeling very anxious with a heaviness across her chest just prior to event Lower GI bleed with reports of bright red blood per rectum Acute blood loss anemia on anemia of chronic disease Paroxysmal atrial fibrillation Hypertension Hyperlipidemia Hypothyroidism Mwz-lwvbchp-daiomvxjm diabetes mellitus -D-dimer 0.62 which is normal with age correction -Echocardiogram to be completed -Gen. surgeon consulted for management of GI bleed -Cardiology consulted secondary to syncopal episode with recently diagnosed A. fib RVR and patient reporting just prior to syncopal event feeling very anxious with a heaviness across her chest -Hemoglobin 8.4, continue to monitor H&H every 6 hours x 4 and transfuse as needed for hemoglobin less than 7. -Continue with Protonix 40 mg IVP twice daily. -Clear liquid diet until cleared by Gen Sx to advance diet. -Continued gentle hydration with 0.9% normal saline at 75 mL's per hour. -Hold anticoagulation with Xarelto and order placed for MARILOU hose and SCDs for DVT prophylaxis. -Vital signs to be monitored every 4 hours and as needed. Patient to continue with daily home medication regimen with losartan 50 mg daily and metoprolol 25 mg nightly. -Hold metformin and placed patient on glycemic protocol with NovoLog sliding scale. Data and imaging reviewed: -Labs completed and reviewed. CBC showing stable normocytic anemia with hemoglobin of 8.4. D-dimer 0.62 which is normal with age correction. -No new imaging available for review at this time. -Vital signs reviewed. Blood pressure 147/79, heart rate 72, respiratory rate 16, temp 98.1F, and SpO2 of 98% on room air. CODE STATUS: Full code DVT prophylaxis: anticoagulation held secondary to lower GI bleed, MARILOU hose and SCDs for DVT prophylaxis. Discussed with: Patient and RN Anticipated discharge date: clinical course to determine Anticipated discharge place: home Patient was seen independently by Nurse Practitioner. This document was prepared using [employer] dictation software. Please allow for errors in commercial mortgage broker while rare they do occur. Objective - Vital Signs Vital signs: Vital Signs Temp 98.1 F 03/11/23 03:38 Pulse 72 03/11/23 03:38 Resp 16 03/11/23 03:38 BP 147/79 03/11/23 03:38 Pulse Ox 98 03/11/23 03:38 FiO2 Intake & Output 03/10/23 03/11/23 03/11/23 18:59 06:59 18:59 Intake Total 540 Balance 540 Weight 72.575 kg 72.575 kg Intake: Oral 540 Other: Voiding Method Toilet # Voids 1 # Bowel Movements 1 - Labs CBC & Chem 7: 03/11/23 12:39 03/11/23 07:14 Labs: Abnormal Lab Results - Last 24 Hours (Table) 03/10/23 03/10/23 03/10/23 Range/Units 13:47 13:47 13:47 RBC 3.56 L (3.80-5.40) m/uL Hgb 9.5 L (11.4-16.0) gm/dL Hct 29.3 L (34.0-46.0) % Plt Count 115 L (150-450) k/uL Neutrophils # 8.4 H (1.3-7.7) k/uL APTT 21.8 L (22.0-30.0) sec D-Dimer (<0.60) mg/L FEU Carbon Dioxide 19 L (22-30) mmol/L BUN 23 H (7-17) mg/dL Glucose 135 H (74-99) mg/dL POC Glucose (mg/dL) (70-110) mg/dL Total Protein 5.9 L (6.3-8.2) g/dL TSH <0.015 L (0.465-4.680) mIU/L Urine Appearance (Clear) Urine Protein (Negative) Urine Blood (Negative) Ur Leukocyte Esterase (Negative) Urine WBC (0-5) /hpf Urine WBC Clumps (None) /hpf Ur Squamous Epith Cells (0-4) /hpf Urine Bacteria (None) /hpf Stool Occult Blood (Negative) 03/10/23 03/10/23 03/10/23 Range/Units 13:47 13:47 14:00 RBC (3.80-5.40) m/uL Hgb (11.4-16.0) gm/dL Hct (34.0-46.0) % Plt Count (150-450) k/uL Neutrophils # (1.3-7.7) k/uL APTT (22.0-30.0) sec D-Dimer 0.62 H (<0.60) mg/L FEU Carbon Dioxide (22-30) mmol/L BUN (7-17) mg/dL Glucose (74-99) mg/dL POC Glucose (mg/dL) (70-110) mg/dL Total Protein (6.3-8.2) g/dL TSH (0.465-4.680) mIU/L Urine Appearance Cloudy H (Clear) Urine Protein Trace H (Negative) Urine Blood Trace H (Negative) Ur Leukocyte Esterase Large H (Negative) Urine WBC >182 H (0-5) /hpf Urine WBC Clumps Many H (None) /hpf Ur Squamous Epith Cells 18 H (0-4) /hpf Urine Bacteria Moderate H (None) /hpf Stool Occult Blood Positive H (Negative) 03/10/23 03/10/23 03/11/23 Range/Units 19:29 20:57 06:21 RBC 3.47 L (3.80-5.40) m/uL Hgb 9.1 L (11.4-16.0) gm/dL Hct 28.5 L (34.0-46.0) % Plt Count 105 L (150-450) k/uL Neutrophils # (1.3-7.7) k/uL APTT (22.0-30.0) sec D-Dimer (<0.60) mg/L FEU Carbon Dioxide (22-30) mmol/L BUN (7-17) mg/dL Glucose (74-99) mg/dL POC Glucose (mg/dL) 120 H 142 H (70-110) mg/dL Total Protein (6.3-8.2) g/dL TSH (0.465-4.680) mIU/L Urine Appearance (Clear) Urine Protein (Negative) Urine Blood (Negative) Ur Leukocyte Esterase (Negative) Urine WBC (0-5) /hpf Urine WBC Clumps (None) /hpf Ur Squamous Epith Cells (0-4) /hpf Urine Bacteria (None) /hpf Stool Occult Blood (Negative) 03/11/23 Range/Units 07:14 RBC 3.27 L (3.80-5.40) m/uL Hgb 8.4 L (11.4-16.0) gm/dL Hct 27.0 L (34.0-46.0) % Plt Count (150-450) k/uL Neutrophils # (1.3-7.7) k/uL APTT (22.0-30.0) sec D-Dimer (<0.60) mg/L FEU Carbon Dioxide (22-30) mmol/L BUN (7-17) mg/dL Glucose (74-99) mg/dL POC Glucose (mg/dL) (70-110) mg/dL Total Protein (6.3-8.2) g/dL TSH (0.465-4.680) mIU/L Urine Appearance (Clear) Urine Protein (Negative) Urine Blood (Negative) Ur Leukocyte Esterase (Negative) Urine WBC (0-5) /hpf Urine WBC Clumps (None) /hpf Ur Squamous Epith Cells (0-4) /hpf Urine Bacteria (None) /hpf Stool Occult Blood (Negative)
--- NOTE | 2023-03-11 13:47 | P.GSCN ---
History of Present Illness Consult date: 03/11/23 History of present illness: CHIEF COMPLAINT: Anemia HISTORY OF PRESENT ILLNESS: The patient is a 83 year old female presented to the emergency room. She presents with anemia and rectal bleeding for GI bleed. She is on blood thinner Xarelto for new onset atrial fibrillation. She reports Cologuard 2 years ago. Last colonoscopy over 10 years ago. She reports past hist ory of H. pylori gastritis and has a hiatal hernia. She has gastroesophageal reflux disease. She reports bleeding hemorrhoids prior to starting Xarelto 2 weeks ago for new palpitations. She had fainted at her local [employer] and was brought to the hospital with new anemia. She is pending a stress test as outpatient. Gen. surgery consulted for GI bleed. PAST MEDICAL HISTORY: See list and reviewed PAST SURGICAL HISTORY: See list and reviewed MEDICATIONS: See list and reviewed ALLERGIES: See list and reviewed SOCIAL HISTORY: See list and reviewed FAMILY HISTORY: See list and reviewed REVIEW OF ORGAN SYSTEMS: CONSTITUTIONAL: No fevers or chills. No recent weight loss. EYES: Denies any trouble with vision. No glasses. HEENT: No difficulties with hearing. No nosebleeds. No difficulty swallowing. RESPIRATORY: Denies pneumonia. Denies any troubles with breathing or dyspnea on exertion. CARDIOVASCULAR: Has hypertensive heart disease. New atrial fibrillation on blood thinners. GASTROINTESTINAL: Denies fatty food intolerance. Denies change in bowel habits and gas bloat. Has hiatal hernia. Past history of H. pylori gastritis infection. Reports gastroesophageal reflux disease. Has bleeding hemorrhoids. Last colonoscopy over 10 years ago. GENITOURINARY: Has chronic urinary tract infections. NEUROLOGICAL: Denies any numbness or tingling along the distal extremities. Has migraines. MUSCULOSKELETAL: Reports back pain, stiffness or joint arthritis. SKIN: No current skin cancer. No rash. PSYCHIATRIC: Denies current depression or suicidal thoughts. ENDOCRINE: Has hypothyroidism. Has diabetes type 2, rbs-swrwqvp-litmucznc. HEME/LYMPHATIC: Denies any lumps and bumps around the neck. No recent deep venous thrombosis. ALLERGY/IMMUNOLOGY: No immunoglobulin therapy. No immune deficiencies. BREAST: Denies current breast lumps, pain or nipple discharge. PHYSICAL EXAM: VITALS: Reviewed CONSTITUTIONAL: Well developed and in no acute distress. EYES: Conjuctivae without sclera icterus. Extraocular movements grossly intact. HEAD, EARS, NOSE, THROAT: Moist buccal mucosa. Head is atraumatic, normocephalic. Hears conversational speech. No nasal drainage. NECK: Supple. No JV distention. No thyroidomegaly. RESPIRATORY: Non-labored respirations and equal bilateral excursions. No gross wheezes. CARDIOVASCULAR: Palpable 2+ radial pulses. ABDOMEN: Nontender. LYMPH: No neck lymphadenopathy. MUSCULOSKELETAL: No clubbing cyanosis or edema SKIN: Warm and well perfused with good skin turgor. NEUROLOGIC: Cranial nerves II through XII grossly intact. No focal or lateralizing signs. PSYCH: Appropriate affect. Alert and oriented to person, place and time. Displays appropriate insight. CLINCAL LABS: Reviewed. Hemoglobin on admission 9.5 down to 8.4 EKG: Supraventricular premature complexes with sinus rhythm. Abnormal EKG RECORDS: Old records of upper endoscopy 2020 reviewed with findings of hiatal hernia with reflux esophagitis. Pathology report demonstrates gastritis, iron pill gastropathy ASSESSMENT: 1. Gastrointestinal bleeding 2. Chronic anticoagulant use 3. Hemorrhoids with bleeding 4. Abnormal EKG 5. Diabetes type 2 6. Hypertensive heart disease PLAN: 1. She is on blood thinner Xarelto for afib. Plan for EGD. 2. Pending EGD findings colonoscopy to follow. 3. Discontinue anticoagulants 4. Monitor hemoglobin ADVANCE DIRECTIVE: Thank you for this kind consultation. Past Medical History Past Medical History: Diabetes Mellitus, Hypertension, Osteoarthritis (OA), Thy roid Disorder Additional Past Medical History / Comment(s): ANEMIA, MIGRAINE HEADACHES , CHRONIC UTI , LACTOSE INTOLERANT, History of Any Multi-Drug Resistant Organisms: None Reported Past Surgical History: Appendectomy, Hysterectomy Additional Past Surgical History / Comment(s): RETINA SURGERY , TJ CATARACT EYE SURGERY, Past Anesthesia/Blood Transfusion Reactions: No Reported Reaction Smoking Status: Never smoker - Past Family History Mother Family Medical History: Cancer Daughter(s) Family Medical History: Cancer Additional Family Medical History / Comment(s): BREAST CANCER Medications and Allergies Home Medications Medication Instructions Recorded Confirmed Type Cyanocobalamin (Vitamin B-12) 5,000 mcg PO DAILY 05/04/21 03/10/23 History [Vitamin B12] Losartan [Cozaar] 50 mg PO DAILY 05/04/21 03/10/23 History Lutein 20 mg PO DAILY 05/04/21 03/10/23 History Spironolactone [Aldactone] 25 mg PO HS 05/04/21 03/10/23 History metFORMIN HCL [Glucophage] 1,000 mg PO BID 05/04/21 03/10/23 History Calcium Carb/Mag Ox/Zinc Sulf 1 tab PO DAILY 03/10/23 03/10/23 History [Xos-Mcf-Rufq 334-134-5 mg Tab] Metoprolol Succinate (ER) [Toprol 25 mg PO HS 03/10/23 03/10/23 History Xl] Rivaroxaban [Xarelto] 20 mg PO DIRECTED 03/10/23 03/10/23 History Vitamin B Complex 1 cap PO DAILY 03/10/23 03/10/23 History Levothyroxine Sodium [Synthroid] 100 mcg PO DAILY 03/11/23 03/11/23 History Allergies Allergy/AdvReac Type Severity Reaction Status Date / Time LAYO Inhibitors Allergy Cough, Verified 03/10/23 16:21 THROAT IRRITATION aspirin Allergy Swelling Verified 03/10/23 16:21 OF EYES AND ITCHING ciprofloxacin [From Cipro] Allergy Nausea & Verified 03/10/23 16:21 Vomiting doxycycline Allergy Swelling Verified 03/10/23 16:21 AND RASH ALL OVER egg Allergy Diarrhea/ABDOMINAL Verified 03/10/23 16:21 PAIN nickel Allergy Swelling Verified 03/10/23 16:21 AT SITE OF JEWELRY Penicillins Allergy Rash/Hives Verified 03/10/23 16:21 Sulfa (Sulfonamide Allergy Rash/Hives Verified 03/10/23 16:21 Antibiotics) vitamin E (d-alpha Allergy BREAST PAIN Verified 03/10/23 16:21 tocopherol) GOLD Allergy Swelling Uncoded 03/10/23 16:21 AT SITE OF JEWELRY Surgical - Exam Vital Signs Temp Pulse Resp BP Pulse Ox 97.8 F 65 18 151/70 98 03/10/23 12:16 03/10/23 12:16 03/10/23 12:16 03/10/23 12:16 03/10/23 12:16 Results - Labs 03/11/23 12:39 03/11/23 07:14 Abnormal Lab Results - Last 24 Hours (Table) 03/10/23 03/10/23 03/10/23 Range/Units 13:47 13:47 13:47 RBC 3.56 L (3.80-5.40) m/uL Hgb 9.5 L (11.4-16.0) gm/dL Hct 29.3 L (34.0-46.0) % Plt Count 115 L (150-450) k/uL Neutrophils # 8.4 H (1.3-7.7) k/uL APTT 21.8 L (22.0-30.0) sec D-Dimer (<0.60) mg/L FEU Chloride (98-107) mmol/L Carbon Dioxide 19 L (22-30) mmol/L BUN 23 H (7-17) mg/dL Glucose 135 H (74-99) mg/dL POC Glucose (mg/dL) (70-110) mg/dL Hemoglobin A1c (<=6.0) % Total Protein 5.9 L (6.3-8.2) g/dL Albumin (3.5-5.0) g/dL TSH <0.015 L (0.465-4.680) mIU/L Urine Appearance (Clear) Urine Protein (Negative) Urine Blood (Negative) Ur Leukocyte Esterase (Negative) Urine WBC (0-5) /hpf Urine WBC Clumps (None) /hpf Ur Squamous Epith Cells (0-4) /hpf Urine Bacteria (None) /hpf Stool Occult Blood (Negative) 03/10/23 03/10/23 03/10/23 Range/Units 13:47 13:47 14:00 RBC (3.80-5.40) m/uL Hgb (11.4-16.0) gm/dL Hct (34.0-46.0) % Plt Count (150-450) k/uL Neutrophils # (1.3-7.7) k/uL APTT (22.0-30.0) sec D-Dimer 0.62 H (<0.60) mg/L FEU Chloride (98-107) mmol/L Carbon Dioxide (22-30) mmol/L BUN (7-17) mg/dL Glucose (74-99) mg/dL POC Glucose (mg/dL) (70-110) mg/dL Hemoglobin A1c (<=6.0) % Total Protein (6.3-8.2) g/dL Albumin (3.5-5.0) g/dL TSH (0.465-4.680) mIU/L Urine Appearance Cloudy H (Clear) Urine Protein Trace H (Negative) Urine Blood Trace H (Negative) Ur Leukocyte Esterase Large H (Negative) Urine WBC >182 H (0-5) /hpf Urine WBC Clumps Many H (None) /hpf Ur Squamous Epith Cells 18 H (0-4) /hpf Urine Bacteria Moderate H (None) /hpf Stool Occult Blood Positive H (Negative) 03/10/23 03/10/23 03/11/23 Range/Units 19:29 20:57 06:21 RBC 3.47 L (3.80-5.40) m/uL Hgb 9.1 L (11.4-16.0) gm/dL Hct 28.5 L (34.0-46.0) % Plt Count 105 L (150-450) k/uL Neutrophils # (1.3-7.7) k/uL APTT (22.0-30.0) sec D-Dimer (<0.60) mg/L FEU Chloride (98-107) mmol/L Carbon Dioxide (22-30) mmol/L BUN (7-17) mg/dL Glucose (74-99) mg/dL POC Glucose (mg/dL) 120 H 142 H (70-110) mg/dL Hemoglobin A1c (<=6.0) % Total Protein (6.3-8.2) g/dL Albumin (3.5-5.0) g/dL TSH (0.465-4.680) mIU/L Urine Appearance (Clear) Urine Protein (Negative) Urine Blood (Negative) Ur Leukocyte Esterase (Negative) Urine WBC (0-5) /hpf Urine WBC Clumps (None) /hpf Ur Squamous Epith Cells (0-4) /hpf Urine Bacteria (None) /hpf Stool Occult Blood (Negative) 03/11/23 03/11/23 03/11/23 Range/Units 07:14 07:14 07:14 RBC 3.27 L (3.80-5.40) m/uL Hgb 8.4 L (11.4-16.0) gm/dL Hct 27.0 L (34.0-46.0) % Plt Count 104 L (150-450) k/uL Neutrophils # (1.3-7.7) k/uL APTT (22.0-30.0) sec D-Dimer (<0.60) mg/L FEU Chloride 109 H (98-107) mmol/L Carbon Dioxide 20 L (22-30) mmol/L BUN (7-17) mg/dL Glucose 126 H (74-99) mg/dL POC Glucose (mg/dL) (70-110) mg/dL Hemoglobin A1c 7.1 H (<=6.0) % Total Protein 5.5 L (6.3-8.2) g/dL Albumin 3.2 L (3.5-5.0) g/dL TSH (0.465-4.680) mIU/L Urine Appearance (Clear) Urine Protein (Negative) Urine Blood (Negative) Ur Leukocyte Esterase (Negative) Urine WBC (0-5) /hpf Urine WBC Clumps (None) /hpf Ur Squamous Epith Cells (0-4) /hpf Urine Bacteria (None) /hpf Stool Occult Blood (Negative) 03/11/23 03/11/23 Range/Units 11:46 12:39 RBC 3.42 L (3.80-5.40) m/uL Hgb 8.9 L (11.4-16.0) gm/dL Hct 28.2 L (34.0-46.0) % Plt Count 109 L (150-450) k/uL Neutrophils # (1.3-7.7) k/uL APTT (22.0-30.0) sec D-Dimer (<0.60) mg/L FEU Chloride (98-107) mmol/L Carbon Dioxide (22-30) mmol/L BUN (7-17) mg/dL Glucose (74-99) mg/dL POC Glucose (mg/dL) 183 H (70-110) mg/dL Hemoglobin A1c (<=6.0) % Total Protein (6.3-8.2) g/dL Albumin (3.5-5.0) g/dL TSH (0.465-4.680) mIU/L Urine Appearance (Clear) Urine Protein (Negative) Urine Blood (Negative) Ur Leukocyte Esterase (Negative) Urine WBC (0-5) /hpf Urine WBC Clumps (None) /hpf Ur Squamous Epith Cells (0-4) /hpf Urine Bacteria (None) /hpf Stool Occult Blood (Negative) Diabetes panel 03/10/23 03/11/23 03/11/23 Range/Units 13:47 07:14 07:14 Sodium 137 138 (137-145) mmol/L Potassium 4.8 4.3 (3.5-5.1) mmol/L Chloride 107 109 H (98-107) mmol/L Carbon Dioxide 19 L 20 L (22-30) mmol/L BUN 23 H 17 (7-17) mg/dL Creatinine 0.81 0.80 (0.52-1.04) mg/dL Glucose 135 H 126 H (74-99) mg/dL Hemoglobin A1c 7.1 H (<=6.0) % Calcium 8.7 8.6 (8.4-10.2) mg/dL AST 19 17 (14-36) U/L ALT 12 12 (4-34) U/L Alkaline Phosphatase 55 50 (38-126) U/L Total Protein 5.9 L 5.5 L (6.3-8.2) g/dL Albumin 3.7 3.2 L (3.5-5.0) g/dL Thyroid panel 03/10/23 Range/Units 13:47 TSH <0.015 L (0.465-4.680) mIU/L Calcium panel 03/10/23 03/11/23 Range/Units 13:47 07:14 Calcium 8.7 8.6 (8.4-10.2) mg/dL Albumin 3.7 3.2 L (3.5-5.0) g/dL Pituitary panel 03/10/23 03/11/23 Range/Units 13:47 07:14 Sodium 137 138 (137-145) mmol/L Potassium 4.8 4.3 (3.5-5.1) mmol/L Chloride 107 109 H (98-107) mmol/L Carbon Dioxide 19 L 20 L (22-30) mmol/L BUN 23 H 17 (7-17) mg/dL Creatinine 0.81 0.80 (0.52-1.04) mg/dL Glucose 135 H 126 H (74-99) mg/dL Calcium 8.7 8.6 (8.4-10.2) mg/dL TSH <0.015 L (0.465-4.680) mIU/L Adrenal panel 03/10/23 03/11/23 Range/Units 13:47 07:14 Sodium 137 138 (137-145) mmol/L Potassium 4.8 4.3 (3.5-5.1) mmol/L Chloride 107 109 H (98-107) mmol/L Carbon Dioxide 19 L 20 L (22-30) mmol/L BUN 23 H 17 (7-17) mg/dL Creatinine 0.81 0.80 (0.52-1.04) mg/dL Glucose 135 H 126 H (74-99) mg/dL Calcium 8.7 8.6 (8.4-10.2) mg/dL Total Bilirubin 0.4 0.5 (0.2-1.3) mg/dL AST 19 17 (14-36) U/L ALT 12 12 (4-34) U/L Alkaline Phosphatase 55 50 (38-126) U/L Total Protein 5.9 L 5.5 L (6.3-8.2) g/dL Albumin 3.7 3.2 L (3.5-5.0) g/dL
[2023-03-11 16:44] LABS: Glucose,Whole Blood 122 mg/dL (70-110)
[2023-03-11 18:57] LABS: HCT 28.7 % (34.0-46.0); HGB 8.8 gm/dL (11.4-16.0); Hypochromasia Moderate; MCH 25.7 pg (25.0-35.0); MCHC 30.7 g/dL (31.0-37.0); MCV 83.6 fL (80.0-100.0); Mean Platelet Volume 10.4; Platelet Count 112 k/uL (150-450); RBC 3.43 m/uL (3.80-5.40); RDW 14.2 % (11.5-15.5); WBC 5.7 k/uL (3.8-10.6)
[2023-03-11] MEDS: NYSTATIN 100,000 UNIT/GM POWD 15 GM TOPICAL SCH (19:55)
[2023-03-11] MEDS: METOPROLOL SUCCINATE (ER) 25 MG TAB.ER.24H PO SCH (19:55)
[2023-03-11 21:00] LABS: Glucose,Whole Blood 172 mg/dL (70-110)
[2023-03-11 23:59] LABS: HCT 27.2 % (34.0-46.0); HGB 8.5 gm/dL (11.4-16.0); Hypochromasia Marked; MCHC 31.4 g/dL (31.0-37.0); MCV 86.1 fL (80.0-100.0); Mean Platelet Volume 10.2; Platelet Count 101 k/uL (150-450); RBC 3.16 m/uL (3.80-5.40); RDW 14.1 % (11.5-15.5); WBC 5.3 k/uL (3.8-10.6)
[2023-03-12] MEDS: LEVOTHYROXINE 100 MCG TAB PO SCH (05:31)
[2023-03-12 06:12] LABS: Glucose,Whole Blood 141 mg/dL (70-110)
[2023-03-12] MEDS: INSULIN ASPART (NovoLOG) 100 UNIT/ML VIAL SQ SCH ×4 (06:13→20:12)
[2023-03-12] MEDS ORDERED: PROPOFOL 10 MG/ML 20 ML VIAL IV ONE (09:22)
[2023-03-12] MEDS ORDERED: IV FLUID CONTINUATION 1,000 ML IV ONE ×2 (09:25)
--- NOTE | 2023-03-12 09:46 | P.PCN ---
Date of Procedure: 03/12/23 Description of Procedure: PREOPERATIVE DIAGNOSIS: Acute gastrointestinal bleeding Anticoagulant use Gastroesophageal reflux disease POSTOPERATIVE DIAGNOSIS: Gastroesophageal reflux disease Diaphragmatic hiatal hernia Gastritis OPERATION: Esophagogastroduodenoscopy SURGEON: Pippa العلي MD ANESTHESIA: MAC. INDICATIONS: The patient is a 83-year-old female who presents with gastrointestinal bleeding. Benefits and risks of the procedure were described. Informed consent was obtained. DESCRIPTION: The patient was brought into the endoscopy suite and laid in the left lateral decubitus position. An Olympus gastroscope was passed along the posterior oropharynx down to the distal esophagus where the squamocolumnar junction was encountered at 36 cm from the incisors. The stomach was entered and no bile reflux was found. Additional findings are listed below. The first through third portion of the duodenum was examined and unremarkable. Retroflexion of the scope confirmed Hill grade 4 lower esophageal valve. The squamocolumnar junction demonstrated LA grade B erosive esophagitis. The stomach was desufflated. The patient tolerated the procedure well. FINDINGS: Squamocolumnar junction 36 cm from the incisors. Diaphragmatic hiatus at 40 cm. Hiatal hernia, 4 cm Hill grade 4 lower esophageal valve. LA grade B erosive esophagitis. No active duodenitis. No stigmata of bleeding RECOMMENDATIONS: Recommend colonoscopy for source of bleeding
[2023-03-12 10:45] LABS: HCT 25.9 % (34.0-46.0); HGB 8.1 gm/dL (11.4-16.0); Hypochromasia Moderate; MCH 26.4 pg (25.0-35.0); MCHC 31.5 g/dL (31.0-37.0); Mean Platelet Volume 10.7; RBC 3.08 m/uL (3.80-5.40); RDW 14.3 % (11.5-15.5); WBC 4.4 k/uL (3.8-10.6)
[2023-03-12 11:00] LABS: ALT 12 U/L (4-34); AST 24 U/L (14-36); African American GFR (CKD) 75 (>60 ml/min/1.73 sqM); Alkaline Phosphatase 46 U/L (38-126); Anion Gap 7 mmol/L; Blood Urea Nitrogen 12 mg/dL (7-17); Calcium 8.2 mg/dL (8.4-10.2); Carbon Dioxide 20 mmol/L (22-30); Chloride 112 mmol/L (98-107); Glucose 129 mg/dL (74-99); Magnesium 1.6 mg/dL (1.6-2.3); Non-African American GFR(CKD) 65 (>60 ml/min/1.73 sqM); Potassium 4.4 mmol/L (3.5-5.1); Sodium 139 mmol/L (137-145); Total Bilirubin 0.5 mg/dL (0.2-1.3); Total Protein 5.3 g/dL (6.3-8.2)
[2023-03-12] MEDS: LOSARTAN 50 MG TAB PO SCH (11:54)
[2023-03-12] MEDS: NYSTATIN 100,000 UNIT/GM POWD 15 GM TOPICAL SCH ×2 (11:55→20:12)
[2023-03-12] MEDS: PANTOPRAZOLE 40 MG/10 ML VIAL IV SCH ×2 (11:55→20:12)
[2023-03-12] MEDS: SODIUM CHLORIDE 0.9% 1,000 ML IV SCH (11:56)
[2023-03-12 11:57] LABS: Glucose,Whole Blood 135 mg/dL (70-110)
--- NOTE | 2023-03-12 14:05 | P.PN ---
Subjective HISTORY OF PRESENT ILLNESS: This is an 83-year-old female who follows with Dr. Peter. Patient is admitted to the hospital secondary to acute blood loss anemia. She was recently diagnosed with atrial fibrillation and started on Xarelto. This is currently on hold. Patient underwent EGD today with Dr. العلي revealing esophagitis. Patient tentatively scheduled for colonoscopy on Sunday. She currently denies chest pain or pressure. She denies shortness of breath. Telemetry reveals sinus mechanism. PHYSICAL EXAM: VITAL SIGNS: Reviewed. GENERAL: Well-developed in no acute distress. NECK: Supple. No JVD or thyromegaly LUNGS: Respirations even and unlabored. Lungs essentially clear to auscultation bilaterally. HEART: Regular rate and rhythm. S1 and S2 heard. EXTREMITIES: Normal range of motion. No clubbing or cyanosis. Peripheral pulses intact. No lower extremity edema ASSESSMENT: Acute blood loss anemia Status post EGD revealing esophagitis Recently diagnosed paroxysmal atrial fibrillation, currently maintaining sinus mechanism Lightheadedness, resolved Hypertension Diabetes Hypothyroidism PLAN: 2-D echo has been ordered. Await results Continue to hold Xarelto Patient tentatively scheduled for colonoscopy on Sunday Discussed the possibility of Watchman device in the future if patient is unable to tolerate anticoagulation Further recommendations pending patient's course Patient to follow-up post discharge with her primary director of counseling, Dr. Peter Nurse practitioner note has been reviewed by physician. Signing provider agrees with the documented findings, assessment, and plan of care. Objective - Vital Signs Vital signs: Vital Signs Temp 97.7 F 03/12/23 11:30 Pulse 70 03/12/23 11:30 Resp 16 03/12/23 11:30 BP 163/78 03/12/23 11:30 Pulse Ox 100 03/12/23 11:30 FiO2 Intake & Output 03/11/23 03/12/23 03/12/23 18:59 06:59 18:59 Intake Total 1320 50 Balance 1320 50 Intake: IV 50 Intake, IV Titration 600 Amount Sodium Chloride 0.9% 1, 600 000 ml @ 75 mls/hr IV . [id number] [facility] Rx#:[id number] Oral 720 Other: Voiding Method Toilet Toilet # Voids 1 1 - Labs CBC & Chem 7: 03/12/23 10:03 03/12/23 10:03 Labs: Abnormal Lab Results - Last 24 Hours (Table) 03/11/23 03/11/23 03/11/23 Range/Units 16:42 18:34 20:58 RBC 3.43 L (3.80-5.40) m/uL Hgb 8.8 L (11.4-16.0) gm/dL Hct 28.7 L (34.0-46.0) % MCHC 30.7 L (31.0-37.0) g/dL Plt Count 112 L (150-450) k/uL Chloride (98-107) mmol/L Carbon Dioxide (22-30) mmol/L Glucose (74-99) mg/dL POC Glucose (mg/dL) 122 H 172 H (70-110) mg/dL Calcium (8.4-10.2) mg/dL Total Protein (6.3-8.2) g/dL Albumin (3.5-5.0) g/dL 03/11/23 03/12/23 03/12/23 Range/Units 23:42 06:11 10:03 RBC 3.16 L 3.08 L (3.80-5.40) m/uL Hgb 8.5 L 8.1 L (11.4-16.0) gm/dL Hct 27.2 L 25.9 L (34.0-46.0) % MCHC (31.0-37.0) g/dL Plt Count 101 L (150-450) k/uL Chloride (98-107) mmol/L Carbon Dioxide (22-30) mmol/L Glucose (74-99) mg/dL POC Glucose (mg/dL) 141 H (70-110) mg/dL Calcium (8.4-10.2) mg/dL Total Protein (6.3-8.2) g/dL Albumin (3.5-5.0) g/dL 03/12/23 03/12/23 Range/Units 10:03 11:55 RBC (3.80-5.40) m/uL Hgb (11.4-16.0) gm/dL Hct (34.0-46.0) % MCHC (31.0-37.0) g/dL Plt Count (150-450) k/uL Chloride 112 H (98-107) mmol/L Carbon Dioxide 20 L (22-30) mmol/L Glucose 129 H (74-99) mg/dL POC Glucose (mg/dL) 135 H (70-110) mg/dL Calcium 8.2 L (8.4-10.2) mg/dL Total Protein 5.3 L (6.3-8.2) g/dL Albumin 3.0 L (3.5-5.0) g/dL
--- NOTE | 2023-03-12 14:47 | P.PN ---
Subjective Progress Note Date: 03/12/23 History of Presenting Illness: Patient is a very pleasant 83-year-old female with a past medical history of paroxysmal atrial fibrillation, hypertension, hyperlipidemia, hypothyroidism, type II aqx-pnhfgzc-jxufmtrch diabetes mellitus, and chronic iron deficiency anemia. Patient reports she was recently diagnosed with atrial fibrillation after presenting to [facility] on 02/28/23 with palpitations and found to be in atrial fibrillation with RVR. Patient states at that time she was discharged home on Xarelto and shortly after began noticing bright red blood per her rectum. Patient reports she called the principle software engineer's office and was instructed to continue the anticoagulation. Patient reports she continued to have daily episodes of bright red blood per rectum. She denies having any chest pain, shortness of breath, abdominal pain or discomfort, changes in or difficulties with her urination, hematuria, nausea, vomiting, hematemesis, gudelia na, or experiencing any numbness/tingling/weakness/swelling in her extremities. Patient reports today while shopping at [employer] and going to picking belt operator some prescriptions she suddenly began to feel extremely anxious with a heaviness across her chest followed by lightheadedness and the need to sit down as she felt she was going to pass out. Patient reports she sat down on a stool next to the isle and two women came right over to help her. Patient reports the next thing she knew she was lying on the floor with her head on a dog bed. Family member at bedside states that bystanders were cardiac care nurses and that the patient did not fall or hit her head but was gently lowered to the ground for her own safety after she lost consciousness. Pt currently denies having any complaints other than feeling a little tired, anxious and wore out. Pt states long hx of anemia but does not know baseline Hgb level. Patient underwent full evaluation in the emergency department. Labs completed and reviewed. CBC showing normocytic anemia with hemoglobin of 9.5 and thrombocytopenia with platelet count of 115. Coagulation profile showing low PTT at 21.8 otherwise normal findings. BMP showing prerenal azotemia with BUN of 23. Liver profile unremarkable. Troponin negative at less than 0.012. TSH less than 0.015 with free T4 pending. Urinalysis was contaminated and patient denies having urinary complaints at this time. Occult stool positive for blood. EKG was completed showing normal sinus rhythm with frequent PACs at 71 bpm with T-wave inversion in inferior leads 2, 3, and aVF no ST abnormalities showing no signs of acute ischemia. Chest x-ray revealing chronic emphysematous changes with hazy airspace opacity within the right medial lung. KUB showing nonspecific bowel gas pattern negative for acute process. Discussed patient's history, chief complaint, clinical findings, laboratory analysis, and imaging results in detail with the ED physician. ED physician reports that general surgeon, Dr. العلي accepted consult for evaluation and management of patient's GI bleed as gas troenterologist is not available at this time. Patient to be admitted to stepdown unit with telemetry under our services. Gen. surgery and cardiology were consulted. Patient underwent EGD on 03/12/23 Physical exam: Patient seen and fully evaluated at bedside upon return from EGD. Patient currently denies having any complaints other than feeling a little sleepy. Vital signs reviewed and stable. General: Nontoxic, no distress and appears stated age. Derm: Skin warm and dry, normal coloration for ethnicity. Head: Atraumatic, normocephalic and symmetric. Eyes: EOMs intact, no lid lag, and anicteric sclera Mouth: no lip lesions, mucus membranes moist Cardiovascular: regular rate and rhythm with normal S1S2, systolic murmur, positive posterior tibial pulses bilaterally, and cap refill < 2 seconds. Lungs: Respirations even, regular, and unlabored on room air. Lungs CTA bilaterally, no rhonchi, no rales, no wheezing, and no accessory muscle usage. Abdominal: soft, nontender to palpation, no guarding, no appreciable organomegaly Ext: ROM intact. No gross muscle atrophy, no edema, no contractures Neuro: Speech clear, face symmetrical and CN II-XII grossly intact with no noted focal neuro deficits Psych: Alert and oriented to person, place, time, and situation. Appropriate and pleasant affect. Assessment and Plan of Care: Syncopal episode, Possibly secondary to symptomatic anemia vs arrhythmia as patient reported feeling very anxious with a heaviness across her chest just prior to event Lower GI bleed with reports of bright red blood per rectum Acute blood loss anemia on anemia of chronic disease -D-dimer 0.62 which is normal with age correction -Echocardiogram completed and awaiting results. -Gen. surgeon following and patient for EGD this morning with plans for tentative colonoscopy on 03/14/23 -Cardiology following, recommending continued holding of anticoagulation and discussed with patient recommendations for watchman device -Hemoglobin 8.1, continue to monitor H&H and transfuse as needed for hemoglobin less than 7. -Continue with Protonix 40 mg IVP twice daily. -Clear liquid diet until cleared by Gen Sx to advance diet. -Continued gentle hydration with 0.9% normal saline at 75 mL's per hour. -Hold anticoagulation with Xarelto and order placed for MARILOU hose and SCDs for DVT prophylaxis. Non-anion gap Hyperchloremic metabolic acidosis -Unclear origin possibly secondary to acute GI bleed Hypomagnesemia Magnesium 1.6, orders placed for magnesium sulfate 2 g IVPB 1 dose. We will continue to monitor and follow up with repeat magnesium levels with morning labs and replace any abnormal electrolyte values as indicated based upon these results. Paroxysmal atrial fibrillation Hypertension Hyperlipidemia -Vital signs to be monitored every 4 hours and as needed. Patient to continue with daily home medication regimen with losartan 50 mg daily and metoprolol 25 mg nightly. -Hold metformin and placed patient on glycemic protocol with NovoLog sliding scale. -Hold anticoagulation with Xarelto and order placed for MARILOU hose and SCDs for DVT prophylaxis. Hypothyroidism -Patient to continue daily medication regimen with level thyroxine 100 g daily. Vep-ynsudem-deffpxczv diabetes mellitus -Continue to Hold metformin and continue glycemic protocol with NovoLog sliding scale. Data and imaging reviewed: -Labs completed and reviewed. CBC showing stable normocytic anemia with hemoglobin of 8.1. CMP showing hyperchloremic metabolic acidosis with chloride of 112, bicarb 20, and anion gap of 7. Magnesium was slightly low at 1.6. -No new imaging available for review at this time. -Vital signs reviewed. Blood pressure 130/60, heart rate 58, respiratory rate 16, temp 96.2F, and SpO2 of 96% on room air. CODE STATUS: Full code DVT prophylaxis: anticoagulation held secondary to lower GI bleed, MARILOU hose and SCDs for DVT prophylaxis. Discussed with: Patient and RN Anticipated discharge date: clinical course to determine Anticipated discharge place: home Patient was seen independently by Nurse Practitioner. This document was prepared using [employer] dictation software. Please allow for errors in pen maker while rare they do occur. Objective - Vital Signs Vital signs: Vital Signs Temp 96.2 F L 03/12/23 07:30 Pulse 58 L 10/16/23 07:30 Resp 16 03/12/23 07:30 BP 130/60 03/12/23 07:30 Pulse Ox 96 03/12/23 07:30 FiO2 Intake & Output 03/11/23 03/12/23 03/12/23 18:59 06:59 18:59 Intake Total 1320 Balance 1320 Intake: Intake, IV Titration 600 Amount Sodium Chloride 0.9% 1, 600 000 ml @ 75 mls/hr IV . [id number] [facility] Rx#:[id number] Oral 720 Other: Voiding Method Toilet # Voids 1 - Labs CBC & Chem 7: 03/12/23 10:03 03/12/23 10:03 Labs: Abnormal Lab Results - Last 24 Hours (Table) 03/11/23 03/11/23 03/11/23 Range/Units 07:14 07:14 07:14 RBC 3.27 L (3.80-5.40) m/uL Hgb 8.4 L (11.4-16.0) gm/dL Hct 27.0 L (34.0-46.0) % MCHC (31.0-37.0) g/dL Plt Count 104 L (150-450) k/uL Chloride 109 H (98-107) mmol/L Carbon Dioxide 20 L (22-30) mmol/L Glucose 126 H (74-99) mg/dL POC Glucose (mg/dL) (70-110) mg/dL Hemoglobin A1c 7.1 H (<=6.0) % Total Protein 5.5 L (6.3-8.2) g/dL Albumin 3.2 L (3.5-5.0) g/dL 03/11/23 03/11/23 03/11/23 Range/Units 11:46 12:39 16:42 RBC 3.42 L (3.80-5.40) m/uL Hgb 8.9 L (11.4-16.0) gm/dL Hct 28.2 L (34.0-46.0) % MCHC (31.0-37.0) g/dL Plt Count 109 L (150-450) k/uL Chloride (98-107) mmol/L Carbon Dioxide (22-30) mmol/L Glucose (74-99) mg/dL POC Glucose (mg/dL) 183 H 122 H (70-110) mg/dL Hemoglobin A1c (<=6.0) % Total Protein (6.3-8.2) g/dL Albumin (3.5-5.0) g/dL 03/11/23 03/11/23 03/11/23 Range/Units 18:34 20:58 23:42 RBC 3.43 L 3.16 L (3.80-5.40) m/uL Hgb 8.8 L 8.5 L (11.4-16.0) gm/dL Hct 28.7 L 27.2 L (34.0-46.0) % MCHC 30.7 L (31.0-37.0) g/dL Plt Count 112 L 101 L (150-450) k/uL Chloride (98-107) mmol/L Carbon Dioxide (22-30) mmol/L Glucose (74-99) mg/dL POC Glucose (mg/dL) 172 H (70-110) mg/dL Hemoglobin A1c (<=6.0) % Total Protein (6.3-8.2) g/dL Albumin (3.5-5.0) g/dL 03/12/23 Range/Units 06:11 RBC (3.80-5.40) m/uL Hgb (11.4-16.0) gm/dL Hct (34.0-46.0) % MCHC (31.0-37.0) g/dL Plt Count (150-450) k/uL Chloride (98-107) mmol/L Carbon Dioxide (22-30) mmol/L Glucose (74-99) mg/dL POC Glucose (mg/dL) 141 H (70-110) mg/dL Hemoglobin A1c (<=6.0) % Total Protein (6.3-8.2) g/dL Albumin (3.5-5.0) g/dL
[2023-03-12] MEDS: MAGNESIUM SULFATE-D5W PMX 1 GM in DEXTROSE/WATER 1 100ML.BAG IVPB SCH ×2 (15:43→17:50)
[2023-03-12 16:07] LABS: Platelet Count 98 k/uL (150-450)
[2023-03-12 16:59] LABS: Glucose,Whole Blood 201 mg/dL (70-110)
--- NOTE | 2023-03-12 18:23 | CA ---
Transthoracic Echo Report Name: Uma Haile Age: 83 Gender: F : 1940 Exam Date: 03/12/2023 10:28 Exam Location: [facility] Ht (in): 66 Wt (lb): 160 Ordering Physician: Steve Robert Attending/Referring Phys: Purchasing Manager/Sales Danis Tadeo Procedure CPT: Indications: syncopal episode Cardiac Hx: Technical Quality: Fair Contrast 1: Total Dose (mL): Contrast 2: Total Dose (mL): MEASUREMENTS (Male / Female) Normal Values 2D ECHO LV Diastolic Diameter PLAX 5.1 cm 4.2 - 5.9 / 3.9 - 5.3 cm LV Systolic Diameter PLAX 3.8 cm IVS Diastolic Thickness 1.0 cm 0.6 - 1.0 / 0.6 - 0.9 cm LVPW Diastolic Thickness 1.2 cm 0.6 - 1.0 / 0.6 - 0.9 cm LV Relative Wall Thickness 0.4 RV Internal Dim ED PLAX 2.8 cm LV Diastolic Volume MOD BP 57.6 cm??? 67 - 155 / 56 - 104 cm??? LV Systolic Volume MOD BP 27.7 cm??? 22 - 58 / 19 - 49 cm??? LV Ejection Fraction MOD BP 51.8 % >= 55 % LV Cardiac Index MOD BP 1112.8 cm???/min???m??? LV Diastolic Volume MOD 4C 67.5 cm??? LV Systolic Volume MOD 4C 27.8 cm??? LV Ejection Fraction MOD 4C 58.8 % LV Cardiac Index MOD 4C 1480.2 cm???/min???m??? LV Diastolic Length 4C 6.2 cm LV Systolic Length 4C 5.9 cm LV Diastolic Volume MOD 2C 47.4 cm??? LV Systolic Volume MOD 2C 26.1 cm??? LV Ejection Fraction MOD 2C 45.0 % LV Cardiac Index MOD 2C 796.5 cm???/min???m??? LV Diastolic Length 2C 6.5 cm LV Systolic Length 2C 6.3 cm LA Volume 59.3 cm??? 18 - 58 / 22 - 52 cm??? LA Volume Index 32.0 cm???/m??? 16 - 28 cm???/m??? DOPPLER AV Peak Velocity 130.6 cm/s AV Peak Gradient 6.8 mmHg AI Peak Velocity 184.1 cm/s AI Peak Gradient 13.6 mmHg AI Pressure Half Time 578.1 ms LVOT Peak Velocity 86.5 cm/s LVOT Peak Gradient 3.0 mmHg LVOT Velocity Time Integral 22.8 cm MR Peak Velocity 583.0 cm/s MR Peak Gradient 136.0 mmHg Mitral E Point Velocity 78.3 cm/s Mitral A Point Velocity 78.6 cm/s Mitral E to A Ratio 1.0 MV Deceleration Time 198.3 ms MV E' Velocity 7.1 cm/s Mitral E to MV E' Ratio 11.0 TR Peak Velocity 175.8 cm/s TR Peak Gradient 12.4 mmHg Right Ventricular Systolic Press 17.4 mmHg PV Peak Velocity 99.9 cm/s PV Peak Gradient 4.0 mmHg FINDINGS Left Ventricle Normal LV size and wall thickness.left ventricular ejection fraction is estimated at 50-55 %. Right Ventricle Normal right ventricular size. Right Atrium Normal right atrial size. Left Atrium Normal left atrial size. LA volume index= 33ml/m2 Mitral Valve Posterior MVP. Mitral thickening. Moderate to severe MR. Aortic Valve Trileaflet aortic valve. Trace AI. Tricuspid Valve Structurally normal tricuspid valve. Trace TR. Pulmonic Valve Pulmonic valve not well visualized. No pulmonic regurgitation. Pericardium Normal pericardium. Aorta Normal size aortic root. CONCLUSIONS Normal LV size and systolic function Previewed by: Dr. Adan Doe MD (Electronically Signed) Final Date: 12 March 2023 18:23
[2023-03-12 20:08] LABS: Glucose,Whole Blood 220 mg/dL (70-110)
[2023-03-12] MEDS: METOPROLOL SUCCINATE (ER) 25 MG TAB.ER.24H PO SCH (20:12)
[2023-03-13 05:41] LABS: Glucose,Whole Blood 151 mg/dL (70-110)
[2023-03-13] MEDS: LEVOTHYROXINE 100 MCG TAB PO SCH (05:45)
[2023-03-13] MEDS: SODIUM CHLORIDE 0.9% 1,000 ML IV SCH (05:45)
[2023-03-13] MEDS: INSULIN ASPART (NovoLOG) 100 UNIT/ML VIAL SQ SCH ×4 (06:10→21:08)
[2023-03-13] MEDS ORDERED: LACTULOSE 20 GM/30 ML CUP PO ONE (08:00)
[2023-03-13] MEDS ORDERED: PEG 3350 (420 GM/BTL) + LYTES 4,000 ML BOTTLE PO ONE (08:00)
[2023-03-13] MEDS ORDERED: MAGNESIUM HYDROXIDE 2,400 MG/30 ML CUP PO ONE (08:00)
[2023-03-13 08:01] LABS: HCT 26.1 % (34.0-46.0); HGB 8.2 gm/dL (11.4-16.0); Hypochromasia Moderate; MCHC 31.2 g/dL (31.0-37.0); MCV 83.3 fL (80.0-100.0); Mean Platelet Volume 11.6; RBC 3.14 m/uL (3.80-5.40); RDW 14.3 % (11.5-15.5); WBC 5.4 k/uL (3.8-10.6)
[2023-03-13 08:15] LABS: ALT 14 U/L (4-34); AST 22 U/L (14-36); African American GFR (CKD) 65 (>60 ml/min/1.73 sqM); Albumin 3.2 g/dL (3.5-5.0); Alkaline Phosphatase 53 U/L (38-126); Anion Gap 9 mmol/L; Blood Urea Nitrogen 12 mg/dL (7-17); Carbon Dioxide 20 mmol/L (22-30); Chloride 110 mmol/L (98-107); Glucose 167 mg/dL (74-99); Non-African American GFR(CKD) 57 (>60 ml/min/1.73 sqM); Potassium 3.9 mmol/L (3.5-5.1); Sodium 139 mmol/L (137-145); Total Bilirubin 0.4 mg/dL (0.2-1.3); Total Protein 5.4 g/dL (6.3-8.2)
[2023-03-13 08:17] LABS: Platelet Count 97 k/uL (150-450)
[2023-03-13] MEDS: LOSARTAN 50 MG TAB PO SCH (08:48)
[2023-03-13] MEDS: PANTOPRAZOLE 40 MG/10 ML VIAL IV SCH ×2 (08:48→21:19)
--- NOTE | 2023-03-13 11:26 | P.PN ---
Subjective Progress Note Date: 03/13/23 History of Presenting Illness: Patient is a very pleasant 83-year-old female with a past medical history of paroxysmal atrial fibrillation, hypertension, hyperlipidemia, hypothyroidism, type II gst-rwdvgrc-qtfzklpzf diabetes mellitus, and chronic iron deficiency anemia. Patient reports she was recently diagnosed with atrial fibrillation after presenting to [facility] on 02/28/23 with palpitations and found to be in atrial fibrillation with RVR. Patient states at that time she was discharged home on Xarelto and shortly after began noticing bright red blood per her rectum. Patient reports she called the experimental psychologist's office and was instructed to continue the anticoagulation. Patient reports she continued to have daily episodes of bright red blood per rectum. At grocery store, she had a syncopal episode. She subsequently presented to emergency. CBC showing normocytic anemia with hemoglobin of 9.5 and thrombocytopenia with platelet count of 115. Coagulation profile showing low PTT at 21.8 otherwise normal findings. BMP showing prerenal azotemia with BUN of 23. Liver profile unremarkable. Troponin negative at less than 0.012. TSH less than 0.015 with free T4 pending. Urinalysis was contaminated and patient denies having urinary complaints at this time. Occult stool positive for blood. EKG was completed showing normal sinus rhythm with frequent PACs at 71 bpm with T-wave inversion in inferior leads 2, 3, and aVF no ST abnormalities showing no signs of acute ischemia. Chest x-ray revealing chronic emphysematous changes with hazy airspace opacity within the right medial lung. KUB showing nonspecific bowel gas pattern negative for acute process. ED physician reports that general surgeon, Dr. العلي accepted consult for evaluation and management of patient's GI bleed as cna hha is not available at this time. Patient to be admitted to stepdown unit with telemetry under our services. Gen. surgery and cardiology were consulted. Patient underwent EGD on 03/12/23. This showed gastritis and esophagitis, no stigmata of bleeding. Colonoscopy pending. Patient seen and examined at bedside. No acute events overnight. Denies any further rectal bleeding. Physical exam: Vital signs reviewed and stable. General: Nontoxic, no distress and appears stated age. Derm: Skin warm and dry, normal coloration for ethnicity. Head: Atraumatic, normocephalic and symmetric. Eyes: EOMs intact, no lid lag, and anicteric sclera Mouth: no lip lesions, mucus membranes moist Cardiovascular: regular rate and rhythm with normal S1S2, systolic murmur, positive posterior tibial pulses bilaterally, and cap refill < 2 seconds. Lungs: Respirations even, regular, and unlabored on room air. Lungs CTA bilaterally, no rhonchi, no rales, no wheezing, and no accessory muscle usage. Abdominal: soft, nontender to palpation, no guarding, no appreciable organomegaly Ext: ROM intact. No gross muscle atrophy, no edema, no contractures Neuro: Speech clear, face symmetrical and CN II-XII grossly intact with no noted focal neuro deficits Psych: Alert and oriented to person, place, time, and situation. Appropriate and pleasant affect. Assessment and Plan of Care: Syncopal episode, Possibly secondary to symptomatic anemia vs arrhythmia Lower GI bleed with reports of bright red blood per rectum Acute blood loss anemia on anemia of chronic disease Gastritis and esophagitis noted on EGD -Cardiology following, hold anticoagulation, possible watchman device placement in the future -Hemoglobin currently stable -Continue with Protonix 40 mg IVP twice daily -Gen. surgery following, pending colonoscopy tomorrow Non-anion gap Hyperchloremic metabolic acidosis -Normal saline discontinued, started on lactated Ringer's Hypomagnesemia, resolved Paroxysmal atrial fibrillation Hypertension Hyperlipidemia -Patient to continue with daily home medication regimen with losartan 50 mg daily and metoprolol 25 mg nightly. -Hold metformin and placed patient on glycemic protocol with NovoLog sliding scale. -Hold anti-coagulation -On telemetry Hypothyroidism -Patient to continue daily medication regimen with levothyroxine 100 g daily. Cul-mbdqpsm-kyprnnbpv diabetes mellitus -Continue to Hold metformin and continue glycemic protocol with NovoLog sliding scale. Data and imaging reviewed: Hemoglobin 8.2, platelet 97, bicarbonate 20, creatinine 0.95, sugars range between 151-220 Echocardiogram report reviewed, shows normal LV size and systolic function CODE STATUS: Full code DVT prophylaxis: anticoagulation held secondary to lower GI bleed, MARILOU parker and SCDs for DVT prophylaxis. Anticipated discharge date: clinical course to determine Anticipated discharge place: home Objective - Vital Signs Vital signs: Vital Signs Temp 98.1 F 03/13/23 07:40 Pulse 64 03/13/23 11:23 Resp 16 03/13/23 11:23 BP 183/82 03/13/23 11:23 Pulse Ox 100 03/13/23 11:23 FiO2 Intake & Output 03/12/23 03/13/23 03/13/23 18:59 06:59 18:59 Intake Total 50 Balance 50 Intake: IV 50 Other: Voiding Method Toilet Toilet Toilet # Voids 1 1 - Labs CBC & Chem 7: 03/13/23 07:13 03/13/23 07:13 Labs: Abnormal Lab Results - Last 24 Hours (Table) 03/12/23 03/12/23 03/12/23 Range/Units 10:03 11:55 16:58 RBC (3.80-5.40) m/uL Hgb (11.4-16.0) gm/dL Hct (34.0-46.0) % Plt Count 98 L (150-450) k/uL Chloride (98-107) mmol/L Carbon Dioxide (22-30) mmol/L Glucose (74-99) mg/dL POC Glucose (mg/dL) 135 H 201 H (70-110) mg/dL Calcium (8.4-10.2) mg/dL Total Protein (6.3-8.2) g/dL Albumin (3.5-5.0) g/dL 03/12/23 03/13/23 03/13/23 Range/Units 20:06 05:40 07:13 RBC 3.14 L (3.80-5.40) m/uL Hgb 8.2 L (11.4-16.0) gm/dL Hct 26.1 L (34.0-46.0) % Plt Count 97 L (150-450) k/uL Chloride (98-107) mmol/L Carbon Dioxide (22-30) mmol/L Glucose (74-99) mg/dL POC Glucose (mg/dL) 220 H 151 H (70-110) mg/dL Calcium (8.4-10.2) mg/dL Total Protein (6.3-8.2) g/dL Albumin (3.5-5.0) g/dL 03/13/23 Range/Units 07:13 RBC (3.80-5.40) m/uL Hgb (11.4-16.0) gm/dL Hct (34.0-46.0) % Plt Count (150-450) k/uL Chloride 110 H (98-107) mmol/L Carbon Dioxide 20 L (22-30) mmol/L Glucose 167 H (74-99) mg/dL POC Glucose (mg/dL) (70-110) mg/dL Calcium 8.0 L (8.4-10.2) mg/dL Total Protein 5.4 L (6.3-8.2) g/dL Albumin 3.2 L (3.5-5.0) g/dL
[2023-03-13 11:38] LABS: Glucose,Whole Blood 136 mg/dL (70-110)
[2023-03-13] MEDS: NYSTATIN 100,000 UNIT/GM POWD 15 GM TOPICAL SCH (11:48)
[2023-03-13] MEDS: LACTATED RINGERS 1,000 ML IV SCH (11:50)
--- NOTE | 2023-03-13 14:04 | P.PN ---
Subjective HISTORY OF PRESENT ILLNESS: This is an 83-year-old female who follows with Dr. Peter. Patient is admitted to the hospital secondary to acute blood loss anemia. She was recently diagnosed with atrial fibrillation and started on Xarelto. This is currently on hold. Patient underwent EGD today with Dr. العلي revealing esophagitis. Patient tentatively scheduled for colonoscopy on Sunday. She currently denies chest pain or pressure. She denies shortness of breath. Telemetry reveals sinus mechanism. 03/13/2023 Patient examined this morning at the bedside. Patient denies chest pain or pressure. She denies shortness of breath. Patient is just starting her bowel prep at the time of examination. She is scheduled for colonoscopy tomorrow. Her anticoagulation remains on hold. Hemoglobin 8.2 today. Echocardiogram completed revealing ejection fraction 50-55% with moderate to severe MR and trace TR PHYSICAL EXAM: VITAL SIGNS: Reviewed. GENERAL: Well-developed in no acute distress. NECK: Supple. No JVD or thyromegaly LUNGS: Respirations even and unlabored. Lungs essentially clear to auscultation bilaterally. HEART: Regular rate and rhythm. S1 and S2 heard. Systolic murmur noted EXTREMITIES: Normal range of motion. No clubbing or cyanosis. Peripheral pulses intact. No lower extremity edema ASSESSMENT: Acute blood loss anemia Status post EGD revealing esophagitis Recently diagnosed paroxysmal atrial fibrillation, currently maintaining sinus mechanism Lightheadedness, resolved Hypertension Diabetes Hypothyroidism Moderate to severe mitral regurgitation PLAN: Continue to hold Xarelto Patient scheduled for colonoscopy on Sunday Discussed the possibility of Watchman device in the future if patient is unable to tolerate anticoagulation Further recommendations pending patient's course Patient to follow-up post discharge with her primary fiscal specialist, Dr. Peter Nurse practitioner note has been reviewed by physician. Signing provider agrees with the documented findings, assessment, and plan of care. Objective - Vital Signs Vital signs: Vital Signs Temp 98.1 F 03/13/23 07:40 Pulse 64 03/13/23 11:23 Resp 16 03/13/23 11:23 BP 183/82 03/13/23 11:23 Pulse Ox 100 03/13/23 11:23 FiO2 Intake & Output 03/12/23 03/13/23 03/13/23 18:59 06:59 18:59 Intake Total 50 Balance 50 Intake: IV 50 Other: Voiding Method Toilet Toilet Toilet # Voids 1 1 - Labs CBC & Chem 7: 03/13/23 07:13 03/13/23 07:13 Labs: Abnormal Lab Results - Last 24 Hours (Table) 03/12/23 03/12/23 03/12/23 Range/Units 10:03 16:58 20:06 RBC (3.80-5.40) m/uL Hgb (11.4-16.0) gm/dL Hct (34.0-46.0) % Plt Count 98 L (150-450) k/uL Chloride (98-107) mmol/L Carbon Dioxide (22-30) mmol/L Glucose (74-99) mg/dL POC Glucose (mg/dL) 201 H 220 H (70-110) mg/dL Calcium (8.4-10.2) mg/dL Total Protein (6.3-8.2) g/dL Albumin (3.5-5.0) g/dL 03/13/23 03/13/23 03/13/23 Range/Units 05:40 07:13 07:13 RBC 3.14 L (3.80-5.40) m/uL Hgb 8.2 L (11.4-16.0) gm/dL Hct 26.1 L (34.0-46.0) % Plt Count 97 L (150-450) k/uL Chloride 110 H (98-107) mmol/L Carbon Dioxide 20 L (22-30) mmol/L Glucose 167 H (74-99) mg/dL POC Glucose (mg/dL) 151 H (70-110) mg/dL Calcium 8.0 L (8.4-10.2) mg/dL Total Protein 5.4 L (6.3-8.2) g/dL Albumin 3.2 L (3.5-5.0) g/dL 03/13/23 Range/Units 11:37 RBC (3.80-5.40) m/uL Hgb (11.4-16.0) gm/dL Hct (34.0-46.0) % Plt Count (150-450) k/uL Chloride (98-107) mmol/L Carbon Dioxide (22-30) mmol/L Glucose (74-99) mg/dL POC Glucose (mg/dL) 136 H (70-110) mg/dL Calcium (8.4-10.2) mg/dL Total Protein (6.3-8.2) g/dL Albumin (3.5-5.0) g/dL
--- NOTE | 2023-03-13 14:40 | P.PN ---
Subjective Progress Note Date: 03/13/23 CHIEF COMPLAINT: Anemia HISTORY OF PRESENT ILLNESS: This 83-year-old female who presented with anemia and rectal bleeding. Patient status post EGD revealing esophagitis. Patient denies any abdominal pain. Denies any nausea or vomiting. She started the GoLYTELY bowel prep. Hemoglobin stable at 8.2. PHYSICAL EXAM: VITAL SIGNS: Reviewed GENERAL: Well-developed in no acute distress. HEENT: No sclera icterus. Extraocular movements grossly intact. Moist buccal mucosa. Head is atraumatic, normocephalic. Hears conversational speech. No nasal drainage. NECK: Supple without lymphadenopathy. CHEST: Non-labored respirations and equal bilateral excursions. CARDIOVASCULAR: Palpable 2+ radial pulses. ABDOMEN: Soft. Nondistended. Nontender. MUSCULOSKELETAL: No clubbing or cyanosis. NEUROLOGIC: No focal or lateralizing signs. Cranial nerves II through XII grossly intact. PSYCH: Appropriate affect. Alert and oriented to person, place and time. SKIN: Well perfused. Good skin turgor. ASSESSMENT: 1. Gastrointestinal bleeding 2. Chronic anticoagulant use 3. Hemorrhoids with bleeding 4. Abnormal EKG 5. Diabetes type 2 6. Hypertensive heart disease PLAN: -Patient scheduled for colonoscopy tomorrow, 03/14/[address] العلي -Bowel prep today with Nulytely, milk of magnesia and lactulose -Continue clear liquid diet for today -Nothing by mouth after midnight -Continue to monitor hemoglobin -Hold Christopher Physician Straightening Press Operator note has been reviewed by physician. Signing provider agrees with the documented findings, assessment, and plan of care. Objective - Vital Signs Vital signs: Vital Signs Temp 98.1 F 03/13/23 07:40 Pulse 64 03/13/23 11:23 Resp 16 03/13/23 11:23 BP 183/82 03/13/23 11:23 Pulse Ox 100 03/13/23 11:23 FiO2 Intake & Output 03/12/23 03/13/23 03/13/23 18:59 06:59 18:59 Intake Total 50 Balance 50 Intake: IV 50 Other: Voiding Method Toilet Toilet Toilet # Voids 1 1 - Labs CBC & Chem 7: 03/13/23 07:13 03/13/23 07:13 Labs: Abnormal Lab Results - Last 24 Hours (Table) 03/12/23 03/12/23 03/12/23 Range/Units 10:03 16:58 20:06 RBC (3.80-5.40) m/uL Hgb (11.4-16.0) gm/dL Hct (34.0-46.0) % Plt Count 98 L (150-450) k/uL Chloride (98-107) mmol/L Carbon Dioxide (22-30) mmol/L Glucose (74-99) mg/dL POC Glucose (mg/dL) 201 H 220 H (70-110) mg/dL Calcium (8.4-10.2) mg/dL Total Protein (6.3-8.2) g/dL Albumin (3.5-5.0) g/dL 03/13/23 03/13/23 03/13/23 Range/Units 05:40 07:13 07:13 RBC 3.14 L (3.80-5.40) m/uL Hgb 8.2 L (11.4-16.0) gm/dL Hct 26.1 L (34.0-46.0) % Plt Count 97 L (150-450) k/uL Chloride 110 H (98-107) mmol/L Carbon Dioxide 20 L (22-30) mmol/L Glucose 167 H (74-99) mg/dL POC Glucose (mg/dL) 151 H (70-110) mg/dL Calcium 8.0 L (8.4-10.2) mg/dL Total Protein 5.4 L (6.3-8.2) g/dL Albumin 3.2 L (3.5-5.0) g/dL 03/13/23 Range/Units 11:37 RBC (3.80-5.40) m/uL Hgb (11.4-16.0) gm/dL Hct (34.0-46.0) % Plt Count (150-450) k/uL Chloride (98-107) mmol/L Carbon Dioxide (22-30) mmol/L Glucose (74-99) mg/dL POC Glucose (mg/dL) 136 H (70-110) mg/dL Calcium (8.4-10.2) mg/dL Total Protein (6.3-8.2) g/dL Albumin (3.5-5.0) g/dL
[2023-03-13 16:45] LABS: Appearance,Urine Cloudy (Clear); Bacteria,Urine Many /hpf; Bilirubin,Urine Negative (Negative); Blood,Urine Negative (Negative); Color,Urine Colorless; Glucose,Urine (UA) Negative (Negative); Ketones,Urine Negative (Negative); Leukocyte Esterase,Urine Large (Negative); Mucus,Urine Rare /hpf; Nitrite,Urine Positive (Negative); PH, Urine 5.5 (5.0-8.0); Protein,Urine Negative (Negative); RBC,Urine 44 /hpf (0-5); Specific Gravity,Urine 1.007 (1.001-1.035); Squamous Epithelial Cell,Urine 1 /hpf (0-4); Urobilinogen,Urine <2.0 mg/dL (<2.0); WBC,Urine 23 /hpf (0-5)
[2023-03-13 16:52] LABS: Glucose,Whole Blood 119 mg/dL (70-110)
[2023-03-13 20:27] LABS: Glucose,Whole Blood 135 mg/dL (70-110)
[2023-03-13] MEDS: METOPROLOL SUCCINATE (ER) 25 MG TAB.ER.24H PO SCH (21:20)
[2023-03-13 23:58] LABS: Glucose,Whole Blood 148 mg/dL (70-110)
[2023-03-14] MEDS: LACTATED RINGERS 1,000 ML IV SCH (00:03)
[2023-03-14] MEDS: NYSTATIN 100,000 UNIT/GM POWD 15 GM TOPICAL SCH ×2 (00:04→08:53)
[2023-03-14 06:10] LABS: Glucose,Whole Blood 134 mg/dL (70-110)
[2023-03-14] MEDS: INSULIN ASPART (NovoLOG) 100 UNIT/ML VIAL SQ SCH ×2 (06:14→14:41)
[2023-03-14] MEDS: LEVOTHYROXINE 100 MCG TAB PO SCH (06:15)
[2023-03-14] MEDS: LOSARTAN 50 MG TAB PO SCH (08:53)
[2023-03-14] MEDS: PANTOPRAZOLE 40 MG/10 ML VIAL IV SCH (08:53)
[2023-03-14 09:00] LABS: HCT 26.7 % (34.0-46.0); HGB 8.5 gm/dL (11.4-16.0); Hypochromasia Moderate; MCH 26.3 pg (25.0-35.0); MCHC 31.7 g/dL (31.0-37.0); MCV 83.1 fL (80.0-100.0); Mean Platelet Volume 11.3; Platelet Count 111 k/uL (150-450); RBC 3.22 m/uL (3.80-5.40); RDW 14.4 % (11.5-15.5); WBC 6.8 k/uL (3.8-10.6)
[2023-03-14 09:22] LABS: African American GFR (CKD) 77 (>60 ml/min/1.73 sqM); Anion Gap 8 mmol/L; Blood Urea Nitrogen 7 mg/dL (7-17); Calcium 8.5 mg/dL (8.4-10.2); Carbon Dioxide 24 mmol/L (22-30); Chloride 109 mmol/L (98-107); Glucose 118 mg/dL (74-99); Non-African American GFR(CKD) 67 (>60 ml/min/1.73 sqM); Potassium 3.9 mmol/L (3.5-5.1); Sodium 141 mmol/L (137-145)
[2023-03-14] MEDS ORDERED: PROPOFOL 10 MG/ML 20 ML VIAL IV ONE (09:22)
[2023-03-14] MEDS ORDERED: IV FLUID CONTINUATION 1,000 ML IV ONE (09:23)
--- NOTE | 2023-03-14 10:23 | P.PCN ---
Date of Procedure: 03/14/23 Description of Procedure: PREOPERATIVE DIAGNOSIS: Acute blood loss anemia status post transfusion Gastrointestinal bleeding with hematochezia Chronic anticoagulant use POSTOPERATIVE DIAGNOSIS: Severe sigmoid diverticulosis Grade 3 internal hemorrhoids with recent ulceration Ascending colon adenoma Pandiverticulosis Prolapsed cystocele OPERATION: Colonoscopy with snare polypectomy, ascending colon Colonoscopy to the cecum, ileocecal valve and appendiceal orifice SURGEON: Pippa العلي MD. ANESTHESIA: MAC. INDICATIONS: The patient is a 83-year-old female who presents with gastrointestinal bleeding and rectal bleeding. Benefits and risks were described and informed consent was obtained. DESCRIPTION OF PROCEDURE: The patient had undergone lactulose, milk of magnesia, and Golytely prep 2 L. The patient had been brought into the operating room and laid in the left lateral decubitus position. After adequate intravenous sedation, the rectum was examined with 2% lidocaine jelly. Large nonreducible grade 3 internal hemorrhoids with ulceration, recent inflammation was found. The rectal tone was was within normal limits. An Olympus colonoscope was gently advanced to the cecum with clear visualization of the ileocecal valve including appendiceal orifice. The prep was excellent. Severe sigmoid diverticulosis with pandiverticulosis was encountered without active bleeding. No active colonic bleeding was found. No intraluminal masses were identified within the colon. Colonic polyps were found. No evidence of focal colitis was found. Retroflexion of the scope demonstrated grade 3 internal hemorrhoids with recent inflammation. Active cystocele identified. The colon was desufflated. The patient had tolerated the procedure well. Withdrawal time was over 6 minutes. FINDINGS: Aronchick preparation quality scale 1 (1-5) Internal hemorrhoids, grade 3 with ulceration and recent inflammation No thrombosed hemorrhoid identified. No arteriovenous malformations. Severe sigmoid diverticulosis Pandiverticulosis Removal of one polyp: - Snare polypectomy ascending colon adenoma, 4 mm No focal colitis. RECOMMENDATIONS: 1. Diet as tolerated 2. Patient has severe internal hemorrhoids. Start hydrocortisone cream for treatment 3. Patient is on chronic anticoagulant therapy which makes hemorrhoid surgery extremely high risk. 4. Patient is at risk for rebleed with recurrent symptomatic hemorrhoids 5. Recommend 25-30 g of fiber for sigmoid diverticulosis 6. Recommend avoidance of constipation which will aggravate diverticulosis including hemorrhoids Plan - Discharge Summary Discharge Rx Participant: No New Discharge Prescriptions: No Action metFORMIN HCL [Glucophage] 1,000 mg PO BID Spironolactone [Aldactone] 25 mg PO HS Losartan [Cozaar] 50 mg PO DAILY Cyanocobalamin (Vitamin B-12) [Vitamin B12] 5,000 mcg PO DAILY Metoprolol Succinate (ER) [Toprol Xl] 25 mg PO HS Calcium Carb/Mag Ox/Zinc Sulf [Ngn-Ota-Lhzh 334-134-5 mg Tab] 1 tab PO DAILY Lutein 20 mg PO DAILY Vitamin B Complex 1 cap PO DAILY Rivaroxaban [Xarelto] 20 mg PO HS Levothyroxine Sodium [Synthroid] 100 mcg PO DAILY Discharge Medication List Cyanocobalamin (Vitamin B-12) [Vitamin B12] 5,000 mcg PO DAILY 05/04/21 [History] Losartan [Cozaar] 50 mg PO DAILY 05/04/21 [History] Lutein 20 mg PO DAILY 05/04/21 [History] Spironolactone [Aldactone] 25 mg PO HS 05/04/21 [History] metFORMIN HCL [Glucophage] 1,000 mg PO BID 05/04/21 [History] Calcium Carb/Mag Ox/Zinc Sulf [Qpi-Izz-Xwlf 334-134-5 mg Tab] 1 tab PO DAILY 03/10/23 [History] Metoprolol Succinate (ER) [Toprol Xl] 25 mg PO HS 03/10/23 [History] Rivaroxaban [Xarelto] 20 mg PO HS 03/10/23 [History] Vitamin B Complex 1 cap PO DAILY 03/10/23 [History] Levothyroxine Sodium [Synthroid] 100 mcg PO DAILY 03/11/23 [History] Follow up Appointment(s)/Referral(s): Tulio Palumbo MD [Primary Care Provider] - 1-2 days
[2023-03-14] MEDS ORDERED: HYDROCORTISONE SUPPOSITORY 25 MG SUPP RECTAL SCH (10:30)
[2023-03-14] MEDS ORDERED: LOSARTAN 50 MG TAB PO STA (10:49)
[2023-03-14 11:44] LABS: Glucose,Whole Blood 139 mg/dL (70-110)
[2023-03-14 12:24] VITALS: BP 171/79; PULSE 60; TEMP 97.8
--- NOTE | 2023-03-14 12:58 | P.PN ---
Subjective HISTORY OF PRESENT ILLNESS: This is an 83-year-old female who follows with Dr. Peter. Patient is admitted to the hospital secondary to acute blood loss anemia. She was recently diagnosed with atrial fibrillation and started on Xarelto. This is currently on hold. Patient underwent EGD today with Dr. العلي revealing esophagitis. Patient tentatively scheduled for colonoscopy on Sunday. She currently denies chest pain or pressure. She denies shortness of breath. Telemetry reveals sinus mechanism. 03/13/2023 Patient examined this morning at the bedside. Patient denies chest pain or pressure. She denies shortness of breath. Patient is just starting her bowel prep at the time of examination. She is scheduled for colonoscopy tomorrow. Her anticoagulation remains on hold. Hemoglobin 8.2 today. Echocardiogram completed revealing ejection fraction 50-55% with moderate to severe MR and trace TR 03/14/2023 Patient examined this morning at the bedside. Patient is status post colonoscopy revealing hemorrhoids. Patient currently denies chest pain or pressure. She denies shortness of breath. Vital signs are stable. PHYSICAL EXAM: VITAL SIGNS: Reviewed. GENERAL: Well-developed in no acute distress. NECK: Supple. No JVD or thyromegaly LUNGS: Respirations even and unlabored. Lungs essentially clear to auscultation bilaterally. HEART: Regular rate and rhythm. S1 and S2 heard. Systolic murmur noted EXTREMITIES: Normal range of motion. No clubbing or cyanosis. Peripheral pulses intact. No lower extremity edema ASSESSMENT: Acute blood loss anemia Status post EGD revealing esophagitis Status post colonoscopy revealing hemorrhoids Recently diagnosed paroxysmal atrial fibrillation, currently maintaining sinus mechanism Lightheadedness, resolved Hypertension Diabetes Hypothyroidism Moderate to severe mitral regurgitation PLAN: Continue to hold anticoagulation per general surgery recommendations as patient is at high risk for rebleed with recurrent symptomatic hemorrhoids Consider Watchman device on an outpatient basis Patient is stable for discharge home today from a cardiac standpoint Patient would like to follow up in our office post discharge with Dr. Tai Nurse practitioner note has been reviewed by physician. Signing provider agrees with the documented findings, assessment, and plan of care. Objective - Vital Signs Vital signs: Vital Signs Temp 97.8 F 03/14/23 12:00 Pulse 60 03/14/23 12:00 Resp 16 03/14/23 12:00 BP 171/79 03/14/23 12:00 Pulse Ox 98 03/14/23 12:00 FiO2 Intake & Output 03/13/23 03/14/23 03/14/23 18:59 06:59 18:59 Intake Total 118 460 Balance 118 460 Intake: IV 100 Oral 118 360 Other: Voiding Method Toilet Toilet Toilet # Voids 3 1 # Bowel Movements 1 - Labs CBC & Chem 7: 03/14/23 07:30 03/14/23 07:30 Labs: Abnormal Lab Results - Last 24 Hours (Table) 03/13/23 03/13/23 03/13/23 Range/Units 16:20 16:50 20:25 RBC (3.80-5.40) m/uL Hgb (11.4-16.0) gm/dL Hct (34.0-46.0) % Plt Count (150-450) k/uL Chloride (98-107) mmol/L Glucose (74-99) mg/dL POC Glucose (mg/dL) 119 H 135 H (70-110) mg/dL Urine Appearance Cloudy H (Clear) Urine Nitrite Positive H (Negative) Ur Leukocyte Esterase Large H (Negative) Urine RBC 44 H (0-5) /hpf Urine WBC 23 H (0-5) /hpf Urine WBC Clumps Rare H (None) /hpf Urine Bacteria Many H (None) /hpf Urine Mucus Rare H (None) /hpf 03/13/23 03/14/23 03/14/23 Range/Units 23:57 06:05 07:30 RBC 3.22 L (3.80-5.40) m/uL Hgb 8.5 L (11.4-16.0) gm/dL Hct 26.7 L (34.0-46.0) % Plt Count 111 L (150-450) k/uL Chloride (98-107) mmol/L Glucose (74-99) mg/dL POC Glucose (mg/dL) 148 H 134 H (70-110) mg/dL Urine Appearance (Clear) Urine Nitrite (Negative) Ur Leukocyte Esterase (Negative) Urine RBC (0-5) /hpf Urine WBC (0-5) /hpf Urine WBC Clumps (None) /hpf Urine Bacteria (None) /hpf Urine Mucus (None) /hpf 03/14/23 03/14/23 Range/Units 07:30 11:34 RBC (3.80-5.40) m/uL Hgb (11.4-16.0) gm/dL Hct (34.0-46.0) % Plt Count (150-450) k/uL Chloride 109 H (98-107) mmol/L Glucose 118 H (74-99) mg/dL POC Glucose (mg/dL) 139 H (70-110) mg/dL Urine Appearance (Clear) Urine Nitrite (Negative) Ur Leukocyte Esterase (Negative) Urine RBC (0-5) /hpf Urine WBC (0-5) /hpf Urine WBC Clumps (None) /hpf Urine Bacteria (None) /hpf Urine Mucus (None) /hpf
--- NOTE | 2023-03-14 15:14 | P.DS ---
Providers Date of admission: 03/10/23 16:51 Expected date of discharge: 03/14/23 Attending physician: Duncan Rivero MD Consults: 03/10/23 16:49 Consult Physician Urgent Consulting Provider: Pippa العلي Consult Reason/Comments: GI bleed Do you want consulting provider notified?: Already Contacted 03/10/23 17:27 Consult Physician Routine Consulting Provider: Sudhakar Tai Consult Reason/Comments: syncope, Do you want consulting provider notified?: Yes Primary care physician: Tulio Hair [facility] Course: Discharge Diagnosis: Syncopal episode, likely in the setting of symptomatic anemia Acute blood loss anemia on anemia of chronic disease Lower GI bleed Severe internal hemorrhoids Sigmoid diverticulosis Gastritis and esophagitis noted on EGD Non-anion gap Hyperchloremic metabolic acidosis Hypomagnesemia Paroxysmal atrial fibrillation Hypertension Hyperlipidemia Hypothyroidism [id number] diabetes mellitus Hospital Course: Patient is a very pleasant 83-year-old female with a past medical history of paroxysmal atrial fibrillation, hypertension, hyperlipidemia, hypothyroidism, type II [id number]-[id number] diabetes mellitus, and chronic iron deficiency anemia. Patient reports she was recently diagnosed with atrial fibrillation after presenting to [facility] on 02/28/23 with palpitations and found to be in atrial fibrillation with RVR. Patient states at that time she was discharged home on Xarelto and shortly after began noticing bright red blood per her rectum. Patient reports she called the robotics systems engineer's office and was instructed to continue the anticoagulation. Patient reports she continued to have daily episodes of bright red blood per rectum. At grocery store, she had a syncopal episode. She subsequently presented to emergency. CBC showing normocytic anemia with hemoglobin of 9.5 and thrombocytopenia with platelet count of 115. Coagulation profile showing low PTT at 21.8 otherwise normal findings. BMP showing prerenal azotemia with BUN of 23. Liver profile unremarkable. Troponin negative at less than 0.012. TSH less than 0.015 with free T4 pending. Urinalysis was contaminated and patient denies having urinary complaints at this time. Occult stool positive for blood. EKG was completed showing normal sinus rhythm with frequent PACs at 71 bpm with T-wave inversion in inferior leads 2, 3, and aVF no ST abnormalities showing no signs of acute ischemia. Chest x-ray revealing chronic emphysematous changes with hazy airspace opacity within the right medial lung. KUB showing nonspecific bowel gas pattern negative for acute process. ED physician reports that general surgeon, Dr. العلي accepted consult for evaluation and management of patient's GI bleed as television technician is not available at this time. Patient to be admitted to stepdown unit with telemetry under our services. Gen. surgery and cardiology were consulted. Patient underwent EGD on 03/12/23. This showed gastritis and esophagitis, no stigmata of bleeding. Colonoscopy showed severe internal hemorrhoids, due to chronic anticoagulation therapy, and increased risk for getting any hemorrhoid surgery. Gen. surgery recommended increased fiber intake for sigmoid diverticulosis and internal hemorrhoids. Xarelto discontinued at the time of discharge. Patient will be considered for watchman device as outpatient. Patient seen and examined at bedside. Vital signs reviewed and stable. General: Nontoxic, no distress and appears stated age. Derm: Skin warm and dry, normal coloration for ethnicity. Head: Atraumatic, normocephalic and symmetric. Eyes: EOMs intact, no lid lag, and anicteric sclera Mouth: no lip lesions, mucus membranes moist Cardiovascular: regular rate and rhythm with normal S1S2, systolic murmur, positive posterior tibial pulses bilaterally, and cap refill < 2 seconds. Lungs: Respirations even, regular, and unlabored on room air. Lungs CTA bilaterally, no rhonchi, no rales, no wheezing, and no accessory muscle usage. Abdominal: soft, nontender to palpation, no guarding, no appreciable organomegaly Ext: ROM intact. No gross muscle atrophy, no edema, no contractures Neuro: Speech clear, face symmetrical and CN II-XII grossly intact with no noted focal neuro deficits Psych: Alert and oriented to person, place, time, and situation. Appropriate and pleasant affect. A total of 36 minutes of time were spent preparing this complex discharge summary. Patient was discharged on 03/14/23 at 15:07. Patient Condition at Discharge: Stable Plan - Discharge Summary Discharge Rx Participant: No New Discharge Prescriptions: New Hydrocortisone Pr Cream [Proctosol-Hc 2.5%] 1 applic RECTAL BID #28 gm Pantoprazole [Protonix] 40 mg PO DAILY #30 tab Cefdinir 300 mg PO Q12HR #6 cap Continue metFORMIN HCL [Glucophage] 1,000 mg PO BID Spironolactone [Aldactone] 25 mg PO HS Losartan [Cozaar] 50 mg PO DAILY Cyanocobalamin (Vitamin B-12) [Vitamin B-12] 5,000 mcg PO DAILY Metoprolol Succinate (ER) [Toprol XL] 25 mg PO HS Calcium Carb/Mag Ox/Zinc Sulf [Via-Jpq-Gzhq 334-134-5 mg Tab] 1 tab PO DAILY Lutein 20 mg PO DAILY Vitamin B Complex 1 cap PO DAILY Levothyroxine Sodium [Synthroid] 100 mcg PO DAILY Discontinued Rivaroxaban [Xarelto] 20 mg PO HS Discharge Medication List Cyanocobalamin (Vitamin B-12) [Vitamin B-12] 5,000 mcg PO DAILY 05/04/21 [History] Losartan [Cozaar] 50 mg PO DAILY 05/04/21 [History] Lutein 20 mg PO DAILY 05/04/21 [History] Spironolactone [Aldactone] 25 mg PO HS 05/04/21 [History] metFORMIN HCL [Glucophage] 1,000 mg PO BID 05/04/21 [History] Calcium Carb/Mag Ox/Zinc Sulf [Pzy-Szz-Eaak 334-134-5 mg Tab] 1 tab PO DAILY 03/10/23 [History] Metoprolol Succinate (ER) [Toprol XL] 25 mg PO HS 03/10/23 [History] Vitamin B Complex 1 cap PO DAILY 03/10/23 [History] Levothyroxine Sodium [Synthroid] 100 mcg PO DAILY 03/11/23 [History] Cefdinir 300 mg PO Q12HR #6 cap 03/14/23 [Rx] Hydrocortisone Pr Cream [Proctosol-Hc 2.5%] 1 applic RECTAL BID #28 gm 03/14/23 [Rx] Pantoprazole [Protonix] 40 mg PO DAILY #30 tab 03/14/23 [Rx] Follow up Appointment(s)/Referral(s): Sudhakar Tai MD [Medical Doctor] - 1 Week Tulio Palumbo MD [Primary Care Provider] - 1-2 days Patient Instructions/Handouts: Gastrointestinal Bleeding (DC), Hemorrhoids (DC), Diverticulosis (DC), High Fiber Diet (DC) Activity/Diet/Wound Care/Special Instructions: Please see your PCP, and robotics systems engineer. Discharge Disposition: HOME SELF-CARE
[2023-03-15] MEDS ORDERED: LOSARTAN 50 MG TAB PO SCH (09:00)
== END 2023-03-14 17:11 | disposition home or self-care (01) | DRG 813 ==
LOC: EC 12:11 → 3SCARD 16:51
PROVIDERS: ADMIT Family Medicine; ATTEND Family Medicine
PROC: 0DJ08ZZ Inspection of Upper Intestinal Tract, Via Natural or Artificial Opening Endoscopic (ICD-10-PCS; 2023-03-14)
PROC: 0DBK8ZX Excision of Ascending Colon, Via Natural or Artificial Opening Endoscopic, Diagnostic (ICD-10-PCS; principal; 2023-03-14 09:00)
DX: D68.32 Hemorrhagic disorder due to extrinsic circulating anticoagulants (principal); D62 Acute posthemorrhagic anemia; K22.10 Ulcer of esophagus without bleeding; N39.0 Urinary tract infection, site not specified; K64.2 Third degree hemorrhoids; B96.81 Helicobacter pylori [H. pylori] as the cause of diseases classified elsewhere; D63.8 Anemia in other chronic diseases classified elsewhere; D69.6 Thrombocytopenia, unspecified; E03.9 Hypothyroidism, unspecified; E78.5 Hyperlipidemia, unspecified; E83.42 Hypomagnesemia; E87.8 Other disorders of electrolyte and fluid balance, not elsewhere classified; F41.9 Anxiety disorder, unspecified; I11.9 Hypertensive heart disease without heart failure; I34.0 Nonrheumatic mitral (valve) insufficiency; I48.0 Paroxysmal atrial fibrillation; K21.9 Gastro-esophageal reflux disease without esophagitis; K29.70 Gastritis, unspecified, without bleeding; K44.9 Diaphragmatic hernia without obstruction or gangrene; D12.2 Benign neoplasm of ascending colon; K57.30 Diverticulosis of large intestine without perforation or abscess without bleeding; N99.3 Prolapse of vaginal vault after hysterectomy; Z79.01 Long term (current) use of anticoagulants; Z79.84 Long term (current) use of oral hypoglycemic drugs; Z79.890 Hormone replacement therapy; Z79.899 Other long term (current) drug therapy; Z80.3 Family history of malignant neoplasm of breast; Z88.8 Allergy status to other drugs, medicaments and biological substances; Z88.0 Allergy status to penicillin; Z88.2 Allergy status to sulfonamides
CPT/HCPCS: 36415; 43235; 45385; 71046; 74018; 80048; 80053; 81001; 82272; 83036; 83735; 84439; 84443; 84484; 85025; 85027; 85379; 85610; 85730; 86850; 86900; 86901; 88305; 93005; 93306; 96365; 96366; 99291